=== PATIENT | male | born 1945 | race Caucasian/White ===

== ENCOUNTER 2016-12-31 14:55 | Emergency (ER) | payer MEDICARE, OTHER ==
[2016-12-31] MEDS ORDERED: Lidocaine 1% 20 ML MDV INJECT ONE (15:11)
[2016-12-31] MEDS ORDERED: Diphtheria,Pertussis(Acell),Tetanus Vaccine 0.5 ML SDV IM ONE (15:11)
[2016-12-31 15:12] VITALS: BP 153/77
[2016-12-31] MEDS ORDERED: Morphine 10 MG/ML Syringe IM ONE (15:26)
--- NOTE | 2016-12-31 16:19 | EDM.PDOC ---
ED HPI GENERAL MEDICAL PROBLEM - General Chief Complaint: Laceration Time Seen by Provider: 12/31/16 15:30 Source of Information: Reports: Patient History Limitations: Reports: No Limitations - History of Present Illness INITIAL COMMENTS - FREE TEXT/NARRATIVE: Stef is a 71 year old male who presents to the ED today with c/o toe and leg laceration after his son accidentally cut him with a chain saw. Patient was wearing a shoe, he was struck to right toe and lower right anterior padilla, then struck with chain saw when it kicked back. Patient denies any other injuries, he normally ambulates with a cane, has been able to bare weight since injury. Has not had anything for pain. Unsure of last DT. - Related Data Allergies Allergy/AdvReac Type Severity Reaction Status Date / Time No Known Allergies Allergy Verified 12/31/16 15:09 Home Meds: Home Meds Allopurinol [Zyloprim] 100 mg PO DAILY 01/11/16 [History] Calcium Carbonate [Calcium] 500 mg PO DAILY 01/11/16 [History] Magnesium 60 mg PO DAILY 01/11/16 [History] Naproxen 250 mg PO DAILY 01/11/16 [History] Past Medical History HEENT History: Reports: Hard of Hearing, Impaired Vision - Infectious Disease History Infectious Disease History: Reports: Chicken Pox - Past Surgical History HEENT Surgical History: Reports: Oral Surgery, Other (See Below) Other HEENT Surgeries/Procedures: tympanic bone surgery GI Surgical History: Reports: Appendectomy, Colonoscopy, Hernia, Abdominal, Hernia Repair/Other Social & Family History - Tobacco Use Smoking Status *Q: Never Smoker - Recreational Drug Use Recreational Drug Use: No ED ROS GENERAL - Review of Systems Review Of Systems: ROS reveals no pertinent complaints other than HPI. ED EXAM, SKIN/RASH Exam: See Below Exam Limited By: No Limitations General Appearance: Alert, WD/WN, Anxious Head: Atraumatic Neck: Normal Inspection, Supple, Non-Tender Respiratory/Chest: No Respiratory Distress Cardiovascular: Regular Rate, Rhythm Peripheral Pulses: 2+: Posterior Tibial (L), Posterior Tibial (R), Dorsalis Pedis (L), Dorsalis Pedis (R) GI/Abdominal: Normal Bowel Sounds, Soft, Non-Tender Extremities: Normal Range of Motion Neurological: Alert, Oriented, CN II-XII Intact Psychiatric: Normal Affect, Normal Mood, Anxious Skin: Warm, Dry, Other (3 cm deep tissue laceration to right anterior padilla, 2 cm superficial lac just proximal to this, 4 cm abrasion proximal to this. 1 cm laceration to dorsal aspect of right great toe with approx 1.5 cm area of missing tissue, no tendon invovlement on exam, either location, no foreign body either location. CMS intact, cap refill normal, pulses intact, sensation intact , very tender toanterior padilla with any palpation) Lymphatic: No Adenopathy ED SKIN PROCEDURES - Laceration/Wound Repair Right Lower Toes Appearance: Irregular, Clean Distal NVT: Neuro & Vascular Intact, No Tendon Injury Local Anesthesia - Lidocaine (Xylocaine): 1% Plain Local Anesthetic Volume: Other (10 ml) Skin Prep: Chlorhexidine (Hibiciens), Saline, Sterile Drape Exploration/Debridement/Repair: Wound Explored Closed with: Sutures Suture Size: other (5-0) # of Sutures: 10 (4 toe, 6 padilla) Suture Type: Prolene Course - Vital Signs Text/Narrative:: Stef is a 71 year old male who presents to the ED today after his son accidentally cut him with a chain saw. Please refer to HPI and focused exam. Lacerations/wounds were very well irrigated with NS. Hebiclens was also used, suture repair and dermabond used for closure, gouge of skin on right great toe oozing blood, covered with gel foam. Bacitracin and bandages applied and wound care discussed in detail with patient and his son. During suture repair, patient was exquisitely tender over right anterior padilla, x-rays obtained of right tib/fib and right foot and are negative for any acute findings on my review. I am going to start patient on Keflex for infection prophylaxis. I did tell patient I want him seen by his PCP by Monday for wound check, Dr. Carlisle, reasons to return to the ED were discussed in detail. Patient is asking for something for pain upon discharge, I will give a small supply of oxycodone for severe pain, narcotic safety discussed in detail, son assures me he will be around to keep an eye on patient. Patient and son agreeable to plan of care and patient was discharged from the ED in stable condition with his son driving. Last Recorded V/S: Last Vital Signs Temp 37.3 C 12/31/16 15:15 Pulse 87 12/31/16 15:15 Resp 20 12/31/16 15:15 BP 153/77 H 12/31/16 15:15 Pulse Ox 97 12/31/16 15:15 - Orders/Labs/Meds Orders: Active Orders 24 hr Category Date Time Status Vaccines to be Administered [RC] PER UNIT ROUTINE Care 12/31/16 15:11 Active Foot Comp Min 3V Rt [CR] Stat Exams 12/31/16 16:13 Ordered Tibia Fibula Rt [CR] Stat Exams 12/31/16 16:13 Ordered Meds: Medications Discontinued Medications Generic Name Dose Route Start Last Admin Trade Name Callie PRN Reason Stop Dose Admin Bacitracin 2 dose 12/31/16 16:30 Bacitracin Oint 1 Gm TOP 12/31/16 16:31 ONETIME ONE Diphtheria/Tetanus/Acell Pertussis 0.5 ml 12/31/16 15:11 12/31/16 15:18 Adacel IM 12/31/16 15:12 0.5 ml .ONCE ONE Administration Lidocaine HCl 20 ml 12/31/16 15:11 12/31/16 15:19 Xylocaine 1% INJECT 12/31/16 15:12 20 ml ONETIME ONE Administration Morphine Sulfate 8 mg 12/31/16 15:26 12/31/16 15:31 Morphine IM 12/31/16 15:27 8 mg ONETIME ONE Administration Departure - Departure Time of Disposition: 17:00 Disposition: Home, Self-Care 01 Condition: Good Clinical Impression: Contact with chainsaw as cause of accidental injury, Laceration Avulsion of skin of toe Qualifiers: Encounter type: initial encounter Qualified Code(s): S91.109A - Unspecified open wound of unspecified toe(s) without damage to nail, initial encounter - Discharge Information Instructions: Laceration Care, Adult, [id number], Stitches, [place], or Adhesive Wound Closure, [id number] Forms: ED Department Discharge Additional Instructions: Keep wound clean and dry. Bacitracin twice daily for 5 days. Keep covered for the first 24 hours, then only if it may get dirty. Take Tylenol for pain Take Oxycodone for severe pain, this is a narcotic, you cannot drive or drink alcohol if you take it. Be slow to stand and move around as it may make you dizzy/lightheaded. Take Keflex as prescribed to prevent infection. Follow up with Dr. Carlisle by Monday this next week. Ice and elevate throughout the day. Return to the Emergency Room with any complications or concerns. - My Orders Last 24 Hours: My Active Orders 12/31/16 15:11 Vaccines to be Administered [RC] PER UNIT ROUTINE 12/31/16 16:13 Foot Comp Min 3V Rt [CR] Stat Tibia Fibula Rt [CR] Stat - Assessment/Plan Last 24 Hours: My Active Orders 12/31/16 15:11 Vaccines to be Administered [RC] PER UNIT ROUTINE 12/31/16 16:13 Foot Comp Min 3V Rt [CR] Stat Tibia Fibula Rt [CR] Stat
[2016-12-31] MEDS ORDERED: Bacitracin Oint 1 GM U/D Packet TOP ONE (16:30)
--- NOTE | 2017-01-02 09:58 | CR ---
Tibia Fibula Rt INDICATION: trauma FINDINGS: No acute fracture. Degenerative changes in the knee and tibiotalar articulation.
--- NOTE | 2017-01-03 13:10 | CR ---
Foot Comp Min 3V Rt INDICATION: trauma FINDINGS: No evidence for acute fracture. Erosive changes involving the medial distal aspect of the first cuneiform. Soft tissue calcification about the midfoot and ankle. Consider an inflammatory art hropathy such as gout. Scattered hypertrophic changes. Exam otherwise negative.
== END 2016-12-31 17:07 | disposition home or self-care (01) ==
LOC: JP.ED 14:55
DX: S81.811A Laceration without foreign body, right lower leg, initial encounter (principal); S91.111A Laceration without foreign body of right great toe without damage to nail, initial encounter; Z23 Encounter for immunization; S91.101A Unspecified open wound of right great toe without damage to nail, initial encounter; S80.811A Abrasion, right lower leg, initial encounter; Z79.899 Other long term (current) drug therapy; H54.7 Unspecified visual loss; Z98.890 Other specified postprocedural states; Z90.49 Acquired absence of other specified parts of digestive tract; W29.3XXA Contact with powered garden and outdoor hand tools and machinery, initial encounter
CPT/HCPCS: 12002; 73590; 73630; 90715; 96372; 99283; J2270

== ENCOUNTER 2018-11-11 06:38 | Emergency (ER) | payer MEDICARE, OTHER ==
[2018-11-11 07:07] VITALS: BP 171/90
[2018-11-11] MEDS ORDERED: HYDROmorphone 0.5 MG/0.5 ML Syringe IVPUSH ONE (07:31)
[2018-11-11] MEDS ORDERED: Sodium Chloride 0.9% 10 ML Syringe FLUSH PRN (07:31)
--- NOTE | 2018-11-11 07:35 | EDM.PDOC ---
ED HPI GENERAL MEDICAL PROBLEM - General Chief Complaint: Abdominal Pain Stated Complaint: STOMACH PAINS Time Seen by Provider: 11/11/18 07:32 Source of Information: Reports: Patient History Limitations: Reports: No Limitations - History of Present Illness INITIAL COMMENTS - FREE TEXT/NARRATIVE: pt had sepsis in Jul and eneded up with nino kidney problems. He has been doing well until about 5 am and he developed mid abdomanal pain. He had a BM this am and he had one last nite. He did not vomit. He is doing alot of burping. He has not had this discomfort in the past. Onset: Today, Other ( started at 5 am. ) Duration: Hour(s): Associated Symptoms: Reports: No Other Symptoms Treatments MILLWRIGHT: Reports: Other (see below) Other Treatments MILLWRIGHT: none Abdominal Pain Score (Numeric/FACES): 10 - Related Data Allergies Allergy/AdvReac Type Severity Reaction Status Date / Time No Known Allergies Allergy Verified 12/31/16 15:09 Home Meds: Home Meds Allopurinol [Zyloprim] 300 mg PO DAILY 01/11/16 [History] Naproxen 650 mg PO Q6H PRN 01/11/16 [History] Acetaminophen [Tylenol] 11/11/18 [History] Apixaban [Eliquis] 5 mg PO BID 11/11/18 [History] Aspirin 325 mg PO DAILY 11/11/18 [History] Furosemide [Lasix] 20 mg PO DAILY 11/11/18 [History] Ipratropium/Albuterol Sulfate [Iprat-Albut 0.5-3(2.5) mg/3 ml] 3 ml INH Q6H [History] Lactulose 30 ml PO Q12H PRN 11/11/18 [History] Metoprolol Tartrate 37.5 mg PO TID 11/11/18 [History] Past Medical History HEENT History: Reports: Hard of Hearing, Impaired Vision Cardiovascular History: Reports: Afib, Other (See Below) Other Cardiovascular History: V fib Respiratory History: Reports: COPD Genitourinary History: Reports: Renal Disease Other Genitourinary History: stage 3 kidney disease - Infectious Disease History Infectious Disease History: Reports: Chicken Pox - Past Surgical History HEENT Surgical History: Reports: Oral Surgery, Other (See Below) Other HEENT Surgeries/Procedures: tympanic bone surgery GI Surgical History: Reports: Appendectomy, Colonoscopy, Hernia, Abdominal, Hernia Repair/Other Social & Family History - Tobacco Use Smoking Status *Q: Unknown Ever Smoked - Caffeine Use Caffeine Use: Reports: Coffee - Recreational Drug Use Recreational Drug Use: No ED ROS GENERAL - Review of Systems Review Of Systems: See Below Constitutional: Reports: No Symptoms HEENT: Reports: No Symptoms Respiratory: Reports: No Symptoms, Other (pt has a history of copd. ) Cardiovascular: Reports: No Symptoms Endocrine: Reports: No Symptoms GI/Abdominal: Reports: Abdominal Pain, Other (Pt had acute mid abdomanal pain starting at 5 am. He did not vomit. ) : Reports: No Symptoms Musculoskeletal: Reports: No Symptoms Skin: Reports: No Symptoms Neurological: Reports: No Symptoms ED EXAM, GI/ABD - Physical Exam Exam: See Below Text/Narrative:: pt arrived with mid abdomanal pain. This started suddenly at 5 am. He was still uncomfortable on arrival but gradually improved. He was given dilaudid .5 mg. He has been painfree at this time. Exam Limited By: No Limitations General Appearance: Alert, Anxious, Moderate Distress, Other ( Pt is comfortable at this time. He states when the pain was at its worst it was a 10. ) Ears: Normal TMs Nose: Normal Inspection Throat/Mouth: Normal Inspection Head: Atraumatic Neck: Normal Inspection Respiratory/Chest: No Respiratory Distress Cardiovascular: Regular Rate, Rhythm GI/Abdominal Exam: Other (pt had some mild tenderness in the rt upper abdoman. He was not guarded. ) (Male) Exam: Deferred Rectal (Males) Exam: Deferred Back Exam: Normal Inspection Extremities: Normal Inspection Neurological: Alert, Oriented, Normal Cognition Psychiatric: Normal Affect Course - Vital Signs Last Recorded V/S: Last Vital Signs Temp 36.0 C 11/11/18 07:13 Pulse 66 11/11/18 07:13 Resp 24 H 11/11/18 07:13 BP 171/90 H 11/11/18 07:13 Pulse Ox 100 11/11/18 07:13 - Orders/Labs/Meds Orders: Active Orders 24 hr Category Date Time Status Abdomen Pelvis w Cont [CT] Stat Exams 11/11/18 08:20 Stop Req Sodium Chloride 0.9% [Saline Flush] Med 11/11/18 07:31 Active 10 ml FLUSH ASDIRECTED PRN Saline Lock Insert [OM.PC] Routine Oth 11/11/18 07:31 Ordered Medication Orders Sodium Chloride (Saline Flush) 10 ml FLUSH ASDIRECTED PRN PRN Reason: Keep Vein Open Last Admin: 11/11/18 07:38 Dose: 10 ml Labs: Laboratory Tests 11/11/18 11/11/18 11/11/18 Range/Units 07:27 07:27 07:27 WBC 8.8 (4.5-11.0) K/uL RBC 5.32 (4.30-5.90) M/uL Hgb 15.9 H (12.0-15.0) g/dL Hct 47.4 (40.0-54.0) % MCV 89 (80-98) fL MCH 30 (27-31) pg MCHC 34 (32-36) % Plt Count 224 (150-400) K/uL Neut % (Auto) 54 (36-66) % Lymph % (Auto) 32 (24-44) % [place] % (Auto) 11 H (2-6) % Eos % (Auto) 2 (2-4) % Baso % (Auto) 1 (0-1) % Sodium 137 L (140-148) mmol/L Potassium 3.5 L (3.6-5.2) mmol/L Chloride 100 (100-108) mmol/L Carbon Dioxide 26 (21-32) mmol/L Anion Gap 14.5 H (5.0-14.0) mmol/L BUN 28 H (7-18) mg/dL Creatinine 1.4 H (0.8-1.3) mg/dL Est Cr Clr Drug Dosing 39.94 mL/min Estimated GFR (MDRD) 50 L (>60) Glucose 168 H (74-106) mg/dL Calcium 9.6 (8.5-10.1) mg/dL Total Bilirubin 0.9 (0.2-1.0) mg/dL AST 29 (15-37) U/L ALT 21 (12-78) U/L Alkaline Phosphatase 68 (46-116) U/L Total Protein 7.0 (6.4-8.2) g/dL Albumin 3.3 L (3.4-5.0) g/dL Globulin 3.7 H (2.3-3.5) g/dL Albumin/Globulin Ratio 0.9 L (1.2-2.2) Amylase 62 (25-115) U/L Lipase 443 H (73-393) U/L Urine Color Urine Appearance Urine pH (4.5-8.0) Ur Specific [place] (1.008-1.030) Urine Protein (NEGATIVE) mg/dL Urine Glucose (UA) (NEGATIVE) mg/dL Urine Ketones (NEGATIVE) mg/dL Urine Occult Blood (NEGATIVE) Urine Nitrite (NEGAITVE) Urine Bilirubin (NEGATIVE) Urine Urobilinogen (NORMAL) mg/dL Ur Leukocyte Esterase (NEGATIVE) Urine RBC (0-5) Urine WBC (0-5) Ur Epithelial Cells Amorphous Sediment Urine Bacteria Urine Mucus 11/11/18 Range/Units 08:56 WBC (4.5-11.0) K/uL RBC (4.30-5.90) M/uL Hgb (12.0-15.0) g/dL Hct (40.0-54.0) % MCV (80-98) fL MCH (27-31) pg MCHC (32-36) % Plt Count (150-400) K/uL Neut % (Auto) (36-66) % Lymph % (Auto) (24-44) % [place] % (Auto) (2-6) % Eos % (Auto) (2-4) % Baso % (Auto) (0-1) % Sodium (140-148) mmol/L Potassium (3.6-5.2) mmol/L Chloride (100-108) mmol/L Carbon Dioxide (21-32) mmol/L Anion Gap (5.0-14.0) mmol/L BUN (7-18) mg/dL Creatinine (0.8-1.3) mg/dL Est Cr Clr Drug Dosing mL/min Estimated GFR (MDRD) (>60) Glucose (74-106) mg/dL Calcium (8.5-10.1) mg/dL Total Bilirubin (0.2-1.0) mg/dL AST (15-37) U/L ALT (12-78) U/L Alkaline Phosphatase (46-116) U/L Total Protein (6.4-8.2) g/dL Albumin (3.4-5.0) g/dL Globulin (2.3-3.5) g/dL Albumin/Globulin Ratio (1.2-2.2) Amylase (25-115) U/L Lipase (73-393) U/L Urine Color Yellow Urine Appearance Clear Urine pH 8.0 (4.5-8.0) Ur Specific [place] 1.010 (1.008-1.030) Urine Protein Negative (NEGATIVE) mg/dL Urine Glucose (UA) Normal (NEGATIVE) mg/dL Urine Ketones Negative (NEGATIVE) mg/dL Urine Occult Blood Negative (NEGATIVE) Urine Nitrite Negative (NEGAITVE) Urine Bilirubin Negative (NEGATIVE) Urine Urobilinogen Normal (NORMAL) mg/dL Ur Leukocyte Esterase Negative (NEGATIVE) Urine RBC 0-5 (0-5) Urine WBC 0-5 (0-5) Ur Epithelial Cells Not seen Amorphous Sediment Few Urine Bacteria Not seen Urine Mucus Not seen Meds: Medications Generic Name Dose Route Start Last Admin Trade Name Freq PRN Reason Stop Dose Admin Sodium Chloride 10 ml 11/11/18 07:31 11/11/18 07:38 Saline Flush FLUSH 10 ml ASDIRECTED PRN Administration Keep Vein Open Discontinued Medications Generic Name Dose Route Start Last Admin Trade Name Freq PRN Reason Stop Dose Admin Hydromorphone HCl 0.5 mg 11/11/18 07:31 11/11/18 07:37 Dilaudid IVPUSH 11/11/18 07:32 0.5 mg ONETIME ONE Administration - Re-Assessments/Exams Free Text/Narrative Re-Assessment/Exam: 11/11/18 09:29 pt was found to have a normal wbc. His liver enzymes were normal. His amylase was just borderline. A cat scan of the abdoman was obtained which showed alot of stones in the GB. There small stone in the neck of the GB. There appears to be a acute cholecytis. Pt does not want to stay. He is now comfortable. He states this is his first attack. He is advised to eat a low fat diet. He is willing to see a surgeon next week. He will return if his pain should become severe. Departure - Departure Time of Disposition: 09:33 Disposition: Home, Self-Care 01 Condition: Fair Clinical Impression: Calculus of gallbladder with acute cholecystitis - Discharge Information Referrals: Steve Carlisle Sr, MD [Primary Care Provider] - Forms: ED Department Discharge Care Plan Goals: low fat diet, norco 5/325 if pain shouuld become severe, appt with surgeon this week, rtc for US of the GB, augmentin 875 1 tab bid for the next week, use yogurt or probiotic while on the antibiotic. - My Orders Last 24 Hours: My Active Orders 11/11/18 07:31 Sodium Chloride 0.9% [Saline Flush] 10 ml FLUSH ASDIRECTED PRN Saline Lock Insert [OM.PC] Routine 11/11/18 08:20 Abdomen Pelvis w Cont [CT] Stat - Assessment/Plan Last 24 Hours: My Active Orders 11/11/18 07:31 Sodium Chloride 0.9% [Saline Flush] 10 ml FLUSH ASDIRECTED PRN Saline Lock Insert [OM.PC] Routine 11/11/18 08:20 Abdomen Pelvis w Cont [CT] Stat
--- NOTE | 2018-11-11 08:18 | CRLCR ---
INDICATION: Abdominal pain. TECHNIQUE: Single-view chest and 2 views abdomen and pelvis. FINDINGS: Mild gas distention of small bowel and colonic loops in the abdomen and pelvis as well as mild gas distention of stomach falls within normal limits. No free intraperitoneal air. Rounded focus of increased soft tissue density in the left upper abdomen along the inferior aspect of the stomach level which measures 8-9 cm in diameter. This could be related to the stomach but is more rounded than typical and makes exclusion of a mass in this region not possible. If there is clinical concern this could be correlated to CT. The heart is enlarged. Mild opacity in the lungs likely related atelectasis scarring greatest in the left lung base. Mild scoliosis. Moderate degenerative changes in the spine. Chest and abdomen otherwise unremarkable. Dictated by Martin Thurston MD @ Nov 11 2018 8:16AM Signed by Dr. Martin Thurston @ Nov 11 2018 8:17AM
--- NOTE | 2018-11-11 08:58 | CRLCT ---
INDICATION: Mid abdominal pain. TECHNIQUE: CT of the abdomen and pelvis performed without oral IV contrast. FINDINGS: Osteopenia. Moderate degenerative changes in the spine. Dense mitral annular calcification. Mild interstitial prominence in the lung bases could be fibrotic or inflammatory. Few areas of nodularity in the lung bases specially in the lower lobes along the hemidiaphragms are nonspecific. These could be inflammatory or postinflammatory but could be compared with prior CT exams if any are available or followup CT could ensure these are stable. Small stones in the gallbladder. Mild inflammatory stranding about the gallbladder which suggests acute cholecystitis. Clinical and laboratory correlation suggested. Correlation with gallbladder ultrasound or HIDA scan could confirm this diagnosis. Tiny density in the region of the cystic duct could be a tiny stone. Small stone in the gallbladder neck near the cystic duct connection. No common bile duct dilatation. Mild fluid and stranding of mild degree about both kidneys likely chronic. Small left inguinal hernia containing only fat. Minimal fat-density change in irregularity of the bladder wall likely related to prior inflammation. Benign calcification in the fat adjacent to the mid sigmoid colon. Fat density change within the wall of the right colon could be related to prior inflammation or chronic inflammation. Similar change in the distal rectal wall. Appendix is normal. Remainder negative. IMPRESSION: 1. Cholelithiasis with stones extending to the gallbladder neck. Suggestion of a tiny calcification in the region of the cystic duct could be a tiny stone. Minimal inflammatory stranding about the gallbladder consistent with early acute cholecystitis. Suggest clinical correlation and laboratory correlation as well as gallbladder ultrasound or HIDA scan to confirm diagnosis. 2. Minimal bibasilar nodularity likely inflammatory or postinflammatory but could be followed with future imaging or compared with prior imaging to ensure it is stable. 3. Small fat containing left inguinal hernia. Other findings as above. Please note that all CT scans at this facility use dose modulation, iterative reconstruction, and/or weight-based dosing when appropriate to reduce radiation dose to as low as reasonably achievable. Dictated by Martin Thurston MD @ Nov 11 2018 8:53AM Signed by Dr. Martin Thurston @ Nov 11 2018 8:55AM
== END 2018-11-11 09:50 | disposition home or self-care (01) ==
LOC: JP.ED 06:38
DX: K80.00 Calculus of gallbladder with acute cholecystitis without obstruction (principal); I48.91 Unspecified atrial fibrillation; J44.9 Chronic obstructive pulmonary disease, unspecified; N18.3 Chronic kidney disease, stage 3 (moderate); Z79.899 Other long term (current) drug therapy; Z79.82 Long term (current) use of aspirin
CPT/HCPCS: 36415; 74022; 74176; 80053; 81001; 82150; 83690; 85025; 96374; 99284; J1170

== ENCOUNTER 2018-11-11 14:40 | Inpatient (IN) | payer MEDICARE, OTHER ==
[2018-11-11] MEDS ORDERED: Ondansetron 4 MG/2 ML SDV IVPUSH ONE (14:43)
[2018-11-11] MEDS ORDERED: HYDROmorphone 1 MG/ML Syringe IVPUSH ONE ×2 (14:44→15:12)
[2018-11-11] MEDS ORDERED: Sodium Chloride 0.9% 1,000 ML IV SCH (14:45)
--- NOTE | 2018-11-11 14:46 | EDM.PDOC ---
ED HPI GENERAL MEDICAL PROBLEM - General Chief Complaint: Abdominal Pain Stated Complaint: STOMACH PAIN Time Seen by Provider: 11/11/18 15:29 Source of Information: Reports: Patient History Limitations: Reports: No Limitations - History of Present Illness INITIAL COMMENTS - FREE TEXT/NARRATIVE: Pt returned with severe abdomanal pain. He was seen earlier and was felt to have a acute GB problem. I did try to have him see a surgeon this am but he felt like he wanted to wait. This was his first attack ever. Onset: Today, Sudden, Other ( The original pain started at 5 am. ) Duration: Hour(s): Location: Reports: Abdomen Associated Symptoms: Reports: No Other Symptoms Abdominal Pain Score (Numeric/FACES): 10 - Related Data Allergies Allergy/AdvReac Type Severity Reaction Status Date / Time No Known Allergies Allergy Verified 12/31/16 15:09 Home Meds: Home Meds Allopurinol [Zyloprim] 300 mg PO DAILY 01/11/16 [History] Naproxen 650 mg PO Q6H PRN 01/11/16 [History] Acetaminophen [Tylenol] 325 - 650 mg PO ASDIRECTED PRN 11/11/18 [History] Apixaban [Eliquis] 5 mg PO BID 11/11/18 [History] Aspirin 325 mg PO DAILY 11/11/18 [History] Furosemide [Lasix] 20 mg PO DAILY 11/11/18 [History] Ipratropium/Albuterol Sulfate [Iprat-Albut 0.5-3(2.5) mg/3 ml] 3 ml INH Q6H [History] Lactulose 30 ml PO Q12H PRN 11/11/18 [History] Metoprolol Tartrate 37.5 mg PO TID 11/11/18 [History] Past Medical History HEENT History: Reports: Hard of Hearing, Impaired Vision Cardiovascular History: Reports: Afib, Other (See Below) Other Cardiovascular History: V fib Respiratory History: Reports: COPD Genitourinary History: Reports: Renal Disease Other Genitourinary History: stage 3 kidney disease - Infectious Disease History Infectious Disease History: Reports: Chicken Pox - Past Surgical History HEENT Surgical History: Reports: Oral Surgery, Other (See Below) Other HEENT Surgeries/Procedures: tympanic bone surgery GI Surgical History: Reports: Appendectomy, Colonoscopy, Hernia, Abdominal, Hernia Repair/Other Social & Family History - Caffeine Use Caffeine Use: Reports: Coffee ED ROS GENERAL - Review of Systems Review Of Systems: See Below Constitutional: Reports: No Symptoms HEENT: Reports: No Symptoms Respiratory: Reports: No Symptoms Cardiovascular: Reports: No Symptoms Endocrine: Reports: No Symptoms GI/Abdominal: Reports: Abdominal Pain, Other ( severe mid abdomanl pain returned and he is extremely uncomfortable. ) : Reports: No Symptoms Musculoskeletal: Reports: No Symptoms Skin: Reports: No Symptoms ED EXAM, GI/ABD - Physical Exam Exam: See Below Text/Narrative:: pt arrived very uncomfortable and nauseated. He had been seen earlier and noted to have a probable acute cholecystis. Exam Limited By: No Limitations General Appearance: Alert, Severe Distress, Other (pt is very sweaty. ) Ears: Normal TMs Nose: Normal Inspection Throat/Mouth: Normal Inspection Head: Atraumatic Neck: Normal Inspection Respiratory/Chest: No Respiratory Distress Cardiovascular: Regular Rate, Rhythm GI/Abdominal Exam: Other (pt was having very severe pain on arrival. It 2 mg of dilaudid to relieve his pain ) (Male) Exam: Deferred Rectal (Males) Exam: Deferred Back Exam: Normal Inspection Extremities: Normal Inspection Neurological: Alert, Oriented, Normal Cognition Psychiatric: Normal Affect Course - Vital Signs Last Recorded V/S: Last Vital Signs Temp 37.2 C 11/11/18 15:45 Pulse 85 11/11/18 16:01 Resp 22 H 11/11/18 16:01 BP 162/81 H 11/11/18 16:01 Pulse Ox 99 11/11/18 15:45 - Orders/Labs/Meds Orders: Active Orders 24 hr Category Date Time Status EKG Documentation Completion [RC] ASDIRECTED Care 11/11/18 14:57 Active Abdomen Ltd [US] Stat Exams 11/11/18 14:44 Ordered Sodium Chloride 0.9% [Normal Saline] 1,000 ml Med 11/11/18 14:45 Active IV ASDIRECTED EKG 12 Lead [EK] Routine Ther 11/11/18 14:57 Ordered Medication Orders Sodium Chloride (Normal Saline) 1,000 mls @ 999 mls/hr IV ASDIRECTED LO Last Admin: 11/11/18 14:56 Dose: 999 mls/hr Labs: Laboratory Tests 11/11/18 11/11/18 Range/Units 14:59 14:59 Troponin I < 0.017 (0.000-0.056) ng/mL Lipase 298 (73-393) U/L Meds: Medications Generic Name Dose Route Start Last Admin Trade Name Freyovany PRN Reason Stop Dose Admin Sodium Chloride 1,000 mls @ 999 mls/hr 11/11/18 14:45 11/11/18 14:56 Normal Saline IV 999 mls/hr ASDIRECTED LO Administration Discontinued Medications Generic Name Dose Route Start Last Admin Trade Name Callie PRN Reason Stop Dose Admin Hydromorphone HCl 1 mg 11/11/18 14:44 11/11/18 14:56 Dilaudid IVPUSH 11/11/18 14:45 1 mg ONETIME ONE Administration Hydromorphone HCl 1 mg 11/11/18 15:12 11/11/18 15:16 Dilaudid IVPUSH 11/11/18 15:13 1 mg ONETIME ONE Administration Hydromorphone HCl Confirm 11/11/18 15:13 11/11/18 15:16 Dilaudid Administered 11/11/18 15:14 Not Given Dose 1 mg .ROUTE .STK-MED ONE Lorazepam 0.5 mg 11/11/18 15:13 11/11/18 15:19 Ativan IVPUSH 11/11/18 15:14 0.5 mg ONETIME ONE Administration Ondansetron HCl 4 mg 11/11/18 14:43 11/11/18 14:56 Zofran IVPUSH 11/11/18 14:44 4 mg ONETIME ONE Administration Departure - Departure Time of Disposition: 16:12 Disposition: Admitted As Inpatient 67 Condition: Fair Clinical Impression: Acute cholecystitis, Atrial fibrillation, Calculus of gallbladder with acute cholecystitis - Discharge Information Referrals: PCP,None [Primary Care Provider] - Forms: ED Department Discharge Care Plan Goals: admit to Dr Power. - My Orders Last 24 Hours: My Active Orders 11/11/18 14:44 Abdomen Ltd [US] Stat 11/11/18 14:45 Sodium Chloride 0.9% [Normal Saline] 1,000 ml IV ASDIRECTED 11/11/18 14:57 EKG Documentation Completion [RC] ASDIRECTED EKG 12 Lead [EK] Routine - Assessment/Plan Last 24 Hours: My Active Orders 11/11/18 14:44 Abdomen Ltd [US] Stat 11/11/18 14:45 Sodium Chloride 0.9% [Normal Saline] 1,000 ml IV ASDIRECTED 11/11/18 14:57 EKG Documentation Completion [RC] ASDIRECTED EKG 12 Lead [EK] Routine
[2018-11-11] MEDS ORDERED: LORazepam 2 MG/ML SDV IVPUSH ONE (15:13)
[2018-11-11] MEDS ORDERED: HYDROmorphone 1 MG/ML Syringe ONE (15:13)
--- NOTE | 2018-11-11 16:31 | CRLUS ---
HISTORY: possible acute cholecystitis. Right upper quadrant pain. COMPARISON: CT 11/11/2018. FINDINGS: The visualized liver demonstrates normal echogenicity. The right lobe is not seen well due to shadowing artifact. There is gallbladder wall thickening and edema measuring 4 mm in thickness. Multiple gallbladder stones. There is a shadowing stone within the neck of the gallbladder. No evidence for intra or extrahepatic biliary dilation. The common duct is measured at 0.5 cm. No visible choledocholithiasis. Positive sonographic Pratt`s sign. The visualized pancreas is within normal. The right kidney measures 10 cm in length. There is a small amount of right perinephric fluid, correlated on recent CT. IMPRESSION: Findings are consistent with acute cholecystitis. No evidence for choledocholithiasis. Recommend surgical consultation. Dictated by Carolynn Rojas MD @ Nov 11 2018 4:30PM Signed by Dr. Carolynn Rojas @ Nov 11 2018 4:30PM
--- NOTE | 2018-11-11 16:48 | PCM.HP ---
H&P History of Present Illness - General Date of Service: 11/11/18 Admit Problem/Dx: Admission Diagnosis/Problem Admission Diagnosis/Problem Cholecystitis Source of Information: Patient, Family, Provider, RN Notes Reviewed History Limitations: Reports: No Limitations - History of Present Illness Initial Comments - Free Text/Narative: Mr. Claros is a 73-year-old gentleman who was admitted through the emergency department with upper abdominal pain and nausea, secondary to acute cholecystitis. He noted abrupt onset of pain this morning and presented to the emergency department, evaluation was remarkable for acute cholecystitis with mild elevation in the lipase level. White blood cell count was found to be normal and pain improved while he was in the emergency department. CT scan of the abdomen and pelvis was obtained which suggested acute cholecystitis with some stranding around the gallbladder and significant cholelithiasis. He is on anticoagulation with Eliquis because of atrial fibrillation. He was discharged to home and instructed to stop taking the anticoagulation, and then to follow- up in the clinic. After he arrived home developed severe recurrent pain and presented back to the emergency department. Lipase level was repeated and had normalized and sleepy earlier level. Ultrasound was obtained which confirms cholecystitis and significant cholelithiasis, there was question of possible small stone at the neck of the gallbladder. No evidence of ductal dilatation or stones within the ductal system. He is feeling better since arriving back at the emergency department, unfortunately he did take his Eliquis this afternoon after he arrived home. He denies any recent symptoms of chest pain or pressure, he does experience shortness of breath but it is been stable over the past several months. He did undergo cardiac evaluation in July while he was in [place]. It was at that time that his atrial fibrillation was diagnosed and he was started on anticoagulation. He does have the records from his cardiac evaluation from [place] and his son will bring them in for review tomorrow. He has had previous surgery with general anesthesia and denies significant adverse reaction, no family history of adverse reaction to general anesthetic. He denies any previous history of deep vein thrombosis, pulmonary embolism, or bleeding abnormalities. Abdominal Pain Score (Numeric/FACES): 10 - Related Data Allergies/Adverse Reactions: Allergies Allergy/AdvReac Type Severity Reaction Status Date / Time No Known Allergies Allergy Verified 12/31/16 15:09 Home Medications: Home Meds Allopurinol [Zyloprim] 300 mg PO DAILY 01/11/16 [History] Naproxen 650 mg PO Q6H PRN 01/11/16 [History] Acetaminophen [Tylenol] 325 - 650 mg PO ASDIRECTED PRN 11/11/18 [History] Apixaban [Eliquis] 5 mg PO BID 11/11/18 [History] Aspirin 325 mg PO DAILY 11/11/18 [History] Furosemide [Lasix] 20 mg PO DAILY 11/11/18 [History] Ipratropium/Albuterol Sulfate [Iprat-Albut 0.5-3(2.5) mg/3 ml] 3 ml INH Q6H [History] Lactulose 30 ml PO Q12H PRN 11/11/18 [History] Metoprolol Tartrate 37.5 mg PO TID 11/11/18 [History] Past Medical History HEENT History: Reports: Hard of Hearing, Impaired Vision Cardiovascular History: Reports: Afib, Other (See Below) Other Cardiovascular History: V fib Respiratory History: Reports: COPD Genitourinary History: Reports: Renal Disease Other Genitourinary History: stage 3 kidney disease - Infectious Disease History Infectious Disease History: Reports: Chicken Pox - Past Surgical History HEENT Surgical History: Reports: Oral Surgery, Other (See Below) Other HEENT Surgeries/Procedures: tympanic bone surgery GI Surgical History: Reports: Appendectomy, Colonoscopy, Hernia, Abdominal, Hernia Repair/Other Social & Family History - Tobacco Use Smoking Status *Q: Unknown Ever Smoked - Caffeine Use Caffeine Use: Reports: Coffee - Recreational Drug Use Recreational Drug Use: No H&P Review of Systems - Review of Systems: Review Of Systems: See Below General: Reports: Weakness, Diaphoresis, Decreased Appetite. Denies: Fever, Chills HEENT: Reports: No Symptoms Pulmonary: Reports: No Symptoms Cardiovascular: Reports: No Symptoms Gastrointestinal: Reports: Abdominal Pain, Distension, Nausea. Denies: Black Stool, Bloody Stool, Constipation, Diarrhea, Difficulty Swallowing, Vomiting Genitourinary: Reports: No Symptoms Musculoskeletal: Reports: No Symptoms Skin: Reports: No Symptoms Psychiatric: Reports: No Symptoms Neurological: Reports: No Symptoms Hematologic/Lymphatic: Reports: No Symptoms Immunologic: Reports: No Symptoms Exam - Exam Exam: See Below - Vital Signs Vital Signs: Last Vital Signs Temp 99 F 11/11/18 15:45 Pulse 85 11/11/18 16:01 Resp 22 H 11/11/18 16:01 BP 162/81 H 11/11/18 16:01 Pulse Ox 99 11/11/18 15:45 Weight: 202 lb 6.15 oz - Exam Quality Assessment: DVT Prophylaxis General: Alert, Oriented, Cooperative, Mild Distress HEENT: Conjunctiva Clear, Hearing Intact, Normal Nasal Septum, Posterior Pharynx Clear, Pupils Equal. No: Mucosa Moist & Bunn Neck: Supple, Trachea Midline, +2 Carotid Pulse wo Bruit Lungs: Clear to Auscultation, Normal Respiratory Effort Cardiovascular: Regular Rate, Normal S1, Normal S2, Irregular Rhythm. No: Systolic Murmur, Diastolic Murmur GI/Abdominal Exam: Soft, No Organomegaly, Distended, Tender. No: Guarding, Rigid, Rebound Back Exam: Normal Inspection, Full Range of Motion Extremities: Non-Tender, No Pedal Edema Skin: Warm, Dry, Intact Neurological: Cranial Nerves Intact, Strength Equal Bilateral, Normal Speech, Normal Tone, Sensation Intact. No: Focal Deficit Neuro Extensive - Mental Status: Alert, Oriented x3, Normal Mood/Affect, Normal Cognition, Memory Intact - Patient Data Lab Results Last 24 hrs: Laboratory Results - last 24 hr 11/11/18 11/11/18 Range/Units 14:59 14:59 Troponin I < 0.017 (0.000-0.056) ng/mL Lipase 298 (73-393) U/L *Q Meaningful Use (ADM) - VTE Risk Assess *Q Each Risk Factor Represents 1 Point: Obesity ( BMI > 25 kg/m2) Total Score 1 Point Risk Factors: 1 Each Risk Factor Represents 2 Points: Age 60 - 74 Years Total Score 2 Point Risk Factors: 2 Each Risk Factor Represents 3 Points: None Total Score 3 Point Risk Factors: 0 Each Risk Factor Represents 5 Points: None Total Score 5 Point Risk Factors: 0 Venous Thromboembolism Risk Factor Score *Q: 3 Problem List Initiated/Reviewed/Updated: Yes Orders Last 24hrs: Active Orders 24 hr Category Date Time Status Patient Status Manage Transfer [TRANSFER] Routine ADT 11/11/18 16:40 Ordered EKG Documentation Completion [RC] ASDIRECTED Care 11/11/18 14:57 Active Sodium Chloride 0.9% [Normal Saline] 1,000 ml Med 11/11/18 14:45 Active IV ASDIRECTED Resuscitation Status Routine Resus Stat 11/11/18 16:43 Ordered EKG 12 Lead [EK] Routine Ther 11/11/18 14:57 Ordered Medication Orders Sodium Chloride (Normal Saline) 1,000 mls @ 999 mls/hr IV ASDIRECTED [facility] Last Admin: 11/11/18 14:56 Dose: 999 mls/hr Assessment/Plan Comment:: ASSESSMENT AND PLAN ACUTE CHOLECYSTITIS-documented on CT scan as well as ultrasound obtained today. Transient elevation in lipase level, found to be normal on his second visit to the ED this afternoon. -Nothing by mouth -IV fluids for hydration -Medication for pain and nausea as needed -Consult Dr. Blas for surgical opinion -IV Unasyn and Azactam ATRIAL FIBRILLATION-diagnosed in July when he was started on anticoagulation. He denies any other history of cardiac disease. He did have cardiac evaluation in July when the atrial fibrillation was diagnosed. He has records from [place] including this evaluation and they will be brought in for review tomorrow. Rate has been well controlled thus far. -Continue outpatient medications -Hold Maggi CHRONIC KIDNEY DISEASE STAGE IIIa -Closely monitor kidney function and urine output LONG-STANDING HISTORY OF ALCOHOL ABUSE ON A DAILY BASIS-he reports history of heavier alcohol use in the past, currently admits to 4 ounces of alcohol per day -Monitor closely for alcohol withdrawal -Gabapentin 400 mg by mouth every 8 hours 4 days, then 200 mg by mouth every 8 hours for 4 days MAINTENANCE ISSUES -DVT prophylaxis; SCUDS -GI prophylaxis; Protonix 40 mg IV daily -White catheter; not indicated -Nutrition; nothing by mouth -Nicotine dependence; not required CODE STATUS-FULL CODE ADMISSION STATUS-patient will be admitted to inpatient status, expect at least a 2 night hospital stay for evaluation and management of problems as outlined above. At the time of this admission I do not reasonably expected evaluation and management of this problem will require more than a 96 hour hospital stay. DISPOSITION-anticipate discharge to home after the hospital stay. PRIMARY CARE PROVIDER-
[2018-11-11] MEDS ORDERED: LORazepam 2 MG/ML SDV IVPUSH PRN (17:24)
[2018-11-11] MEDS ORDERED: Acetaminophen 325 MG Tab PO PRN (18:59)
[2018-11-11] MEDS ORDERED: Albuterol 0.083% 2.5 MG/3 ML Neb Soln NEB PRN (18:59)
[2018-11-11] MEDS ORDERED: Lactulose Soln 10 GM/15 ML 15 ML UD Cup PO PRN (18:59)
[2018-11-11] MEDS ORDERED: Potassium Chloride 20 MEQ Tab.ER PO ONE ×2 (18:59→22:00)
[2018-11-11] MEDS ORDERED: Sodium Chloride 0.9% 10 ML Syringe FLUSH PRN (18:59)
[2018-11-11] MEDS ORDERED: Ondansetron 4 MG/2 ML SDV IVPUSH PRN (18:59)
[2018-11-11] MEDS ORDERED: Pantoprazole 40 MG Vial IVPUSH SCH (19:00)
[2018-11-11] MEDS: Lactated Ringers 1,000 ML IV SCH (19:36)
[2018-11-11] MEDS: Ampicillin/Sulbactam Na 1.5 GM in Sodium Chloride 0.9% 50 ML IV SCH (19:42)
[2018-11-11] MEDS: Gabapentin 400 MG Cap PO SCH (19:43)
[2018-11-11] MEDS: Albuterol/Ipratropium 3.0-0.5 MG/3 ML Neb Soln NEB SCH (21:03)
[2018-11-11] MEDS: Aztreonam 1 GM in Sodium Chloride 0.9% 100 ML IV SCH (21:04)
[2018-11-11] MEDS: HYDROmorphone 0.5 MG/0.5 ML Syringe IVPUSH PRN (21:04)
[2018-11-11] MEDS: Metoprolol Tartrate 25 MG Tab PO SCH (21:35)
[2018-11-12] MEDS: Ampicillin/Sulbactam Na 1.5 GM in Sodium Chloride 0.9% 50 ML IV SCH ×4 (02:07→20:11)
[2018-11-12] MEDS: Gabapentin 400 MG Cap PO SCH ×3 (02:08→18:30)
[2018-11-12] MEDS: Lactated Ringers 1,000 ML IV SCH ×2 (05:58→17:08)
[2018-11-12] MEDS: Aztreonam 1 GM in Sodium Chloride 0.9% 100 ML IV SCH (05:58)
[2018-11-12] MEDS: Albuterol/Ipratropium 3.0-0.5 MG/3 ML Neb Soln NEB SCH ×5 (06:00→21:52)
[2018-11-12] MEDS ORDERED: Pneumococcal Polyvalent-23 Vaccine 0.5 ML SDV IM ONE (08:00)
--- NOTE | 2018-11-12 08:59 | PN ---
DATE OF SERVICE: 11/12/2018 SUBJECTIVE: Stef was admitted through the emergency room yesterday with acute cholecystitis. He has cholelithiasis. Reports his pain is controlled. He has been n.p.o. States this is the first gallbladder problems that he has had. Vital signs have been stable. He has been n.p.o. REVIEW OF SYSTEMS: Remainder of review of systems negative for any pertinent positives and negatives. OBJECTIVE: GENERAL: Kris Claros is a 73-year-old male. VITAL SIGNS: TPR 98, 70, 18, blood pressure 103/58. HEENT: Negative. NECK: Supple. HEART: Regular rate and rhythm. LUNGS: Clear. ABDOMEN: There is tenderness noted in the right upper quadrant, otherwise negative. EXTREMITIES: Without peripheral edema. ASSESSMENT: Acute cholecystitis. PLAN: 1. Schedule and have consent signed for laparoscopic possible open cholecystectomy, general anesthesia on Monday11/13/2018, Glen Blas MD, n.p.o. after midnight. 2. Clear liquid diet. We will evaluate p.r.n. or in a.m. Gabriela Herron PA-C /[phone]
[2018-11-12] MEDS: Aspirin 325 MG Tab.EC PO SCH (10:19)
[2018-11-12] MEDS: Metoprolol Tartrate 25 MG Tab PO SCH ×3 (10:19→21:49)
[2018-11-12] MEDS: Allopurinol 300 MG Tab PO SCH (13:58)
--- NOTE | 2018-11-12 14:44 | PCM.PN ---
- General Info Date of Service: 11/12/18 Subjective Update: No acute events overnight. He has not had any abdominal pain since the time of admission. No complaints of nausea. No fevers. Surgical intervention planned tomorrow. Functional Status: Reports: Pain Controlled, Tolerating Diet - Review of Systems General: Denies: Fever - Patient Data Vitals - Most Recent: Last Vital Signs Temp 35.9 C 11/12/18 11:07 Pulse 59 L 11/12/18 14:35 Resp 16 11/12/18 11:07 BP 109/60 11/12/18 11:07 Pulse Ox 97 11/12/18 14:35 Weight - Most Recent: 90.718 kg I&O - Last 24 Hours: Intake & Output 11/11/18 11/12/18 11/12/18 22:59 06:59 14:59 Intake Total 1300 1500 Balance 1300 1500 Lab Results Last 24 Hours: Laboratory Results - last 24 hr 11/11/18 11/11/18 11/12/18 Range/Units 14:59 14:59 05:48 WBC 8.1 (4.5-11.0) K/uL RBC 4.96 (4.30-5.90) M/uL Hgb 14.8 (12.0-15.0) g/dL Hct 45.6 (40.0-54.0) % MCV 92 (80-98) fL MCH 30 (27-31) pg MCHC 33 (32-36) % Plt Count 185 (150-400) K/uL Neut % (Auto) 63 (36-66) % Lymph % (Auto) 25 (24-44) % Quay % (Auto) 9 H (2-6) % Eos % (Auto) 2 (2-4) % Baso % (Auto) 0 (0-1) % Sodium (140-148) mmol/L Potassium (3.6-5.2) mmol/L Chloride (100-108) mmol/L Carbon Dioxide (21-32) mmol/L Anion Gap (5.0-14.0) mmol/L BUN (7-18) mg/dL Creatinine (0.8-1.3) mg/dL Est Cr Clr Drug Dosing mL/min Estimated GFR (MDRD) (>60) Glucose (74-106) mg/dL Calcium (8.5-10.1) mg/dL Troponin I < 0.017 (0.000-0.056) ng/mL Lipase 298 (73-393) U/L 11/12/18 Range/Units 05:48 WBC (4.5-11.0) K/uL RBC (4.30-5.90) M/uL Hgb (12.0-15.0) g/dL Hct (40.0-54.0) % MCV (80-98) fL MCH (27-31) pg MCHC (32-36) % Plt Count (150-400) K/uL Neut % (Auto) (36-66) % Lymph % (Auto) (24-44) % Quay % (Auto) (2-6) % Eos % (Auto) (2-4) % Baso % (Auto) (0-1) % Sodium 139 L (140-148) mmol/L Potassium 4.8 (3.6-5.2) mmol/L Chloride 106 (100-108) mmol/L Carbon Dioxide 26 (21-32) mmol/L Anion Gap 11.8 (5.0-14.0) mmol/L BUN 21 H (7-18) mg/dL Creatinine 1.3 (0.8-1.3) mg/dL Est Cr Clr Drug Dosing 43.30 mL/min Estimated GFR (MDRD) 54 L (>60) Glucose 126 H (74-106) mg/dL Calcium 8.7 (8.5-10.1) mg/dL Troponin I (0.000-0.056) ng/mL Lipase (73-393) U/L Med Orders - Current: Current Medications Acetaminophen (Tylenol) 650 mg PO Q4H PRN PRN Reason: Pain (Mild 1-3)/fever Albuterol (Proventil Neb Soln) 2.5 mg NEB Q4H PRN PRN Reason: Shortness Of Breath/wheezing Albuterol/Ipratropium (Duoneb 3.0-0.5 Mg/3 Ml) 3 ml NEB QIDRT [facility] Last Admin: 11/12/18 14:35 Dose: 3 ml Allopurinol (Zyloprim) 300 mg PO DAILY [facility] Last Admin: 11/12/18 13:58 Dose: 300 mg Aspirin (Ecotrin) 325 mg PO DAILY [facility] Last Admin: 11/12/18 10:19 Dose: Not Given Gabapentin (Neurontin) 400 mg PO Q8H [facility] Last Admin: 11/12/18 11:13 Dose: 400 mg Hydromorphone HCl (Dilaudid) 0.5 mg IVPUSH Q2H PRN PRN Reason: Pain Last Admin: 11/11/18 21:04 Dose: 0.5 mg Lactated Ringer's (Ringers, Lactated) 1,000 mls @ 125 mls/hr IV ASDIRECTED [facility] Last Admin: 11/12/18 05:58 Dose: 125 mls/hr Ampicillin Sodium/Sulbactam (Sodium 1.5 gm/ Sodium Chloride) 50 mls @ 100 mls/ hr IV Q6H [facility] Last Admin: 11/12/18 13:58 Dose: 100 mls/hr Aztreonam 1 gm/ Sodium (Chloride) 50 mls @ 100 mls/hr IV Q8HR [facility] Lactulose (Chronulac) 20 gm PO Q12H PRN PRN Reason: Constipation Lorazepam (Ativan) 0.5 mg IVPUSH Q4H PRN PRN Reason: Nausea Metoprolol Tartrate (Lopressor) 37.5 mg PO TID [facility] Last Admin: 11/12/18 10:19 Dose: Not Given Ondansetron HCl (Zofran) 4 mg IVPUSH Q4H PRN PRN Reason: Nausea/Vomiting Pantoprazole Sodium (Protonix Iv) 40 mg IVPUSH Q24H [facility] Sodium Chloride (Saline Flush) 10 ml FLUSH ASDIRECTED PRN PRN Reason: Keep Vein Open Discontinued Medications Albuterol/Ipratropium (Duoneb 3.0-0.5 Mg/3 Ml) 3 ml NEB QID [facility] Last Admin: 11/12/18 06:00 Dose: Not Given Hydromorphone HCl (Dilaudid) 1 mg IVPUSH ONETIME ONE Stop: 11/11/18 14:45 Last Admin: 11/11/18 14:56 Dose: 1 mg Hydromorphone HCl (Dilaudid) 1 mg IVPUSH ONETIME ONE Stop: 11/11/18 15:13 Last Admin: 11/11/18 15:16 Dose: 1 mg Hydromorphone HCl (Dilaudid) Confirm Administered Dose 1 mg .ROUTE .STK-MED ONE Stop: 11/11/18 15:14 Last Admin: 11/11/18 15:16 Dose: Not Given Sodium Chloride (Normal Saline) 1,000 mls @ 999 mls/hr IV ASDIRECTED [facility] Last Admin: 11/11/18 14:56 Dose: 999 mls/hr Ampicillin Sodium/Sulbactam (Sodium 1.5 gm/ Sodium Chloride) 50 mls @ 100 mls/ hr IV Q6H [facility] Last Admin: 11/12/18 06:44 Dose: 100 mls/hr Aztreonam 1 gm/ Sodium (Chloride) 100 mls @ 200 mls/hr IV Q8HR [facility] Last Admin: 11/12/18 05:58 Dose: 200 mls/hr Lorazepam (Ativan) 0.5 mg IVPUSH ONETIME ONE Stop: 11/11/18 15:14 Last Admin: 11/11/18 15:19 Dose: 0.5 mg Ondansetron HCl (Zofran) 4 mg IVPUSH ONETIME ONE Stop: 11/11/18 14:44 Last Admin: 11/11/18 14:56 Dose: 4 mg Pantoprazole Sodium (Protonix Iv) 40 mg IVPUSH Q24H [facility] Last Admin: 11/11/18 19:40 Dose: 40 mg Pneumococcal Polyvalent Vaccine (Pneumovax 23) 0.5 ml IM .ONCE ONE Stop: 11/12/18 08:01 Potassium Chloride (Klor-Con M20) 40 meq PO ONETIME ONE Stop: 11/11/18 19:00 Last Admin: 11/11/18 19:42 Dose: 40 meq Potassium Chloride (Klor-Con M20) 40 meq PO ONETIME ONE Stop: 11/11/18 22:01 Last Admin: 11/11/18 21:34 Dose: 40 meq - Exam Quality Assessment: No: Supplemental Oxygen General: Alert, Oriented, Cooperative, No Acute Distress Lungs: Normal Respiratory Effort GI/Abdominal Exam: Soft, No Distention Extremities: No Pedal Edema Psy/Mental Status: Alert, Normal Affect - Problem List Review Problem List Initiated/Reviewed/Updated: Yes - My Orders Last 24 Hours: My Active Orders 11/12/18 13:30 Allopurinol [Zyloprim] 300 mg PO DAILY 05/21/19 05:00 BASIC METABOLIC PANEL,BMP [CHEM] Timed - Plan Plan:: ASSESSMENT AND PLAN ACUTE CHOLECYSTITIS - documented on CT scan as well as ultrasound obtained in the emergency room. No recurrence of pain since admission. -Nothing by mouth after midnight -IV fluids for hydration -Medication for pain and nausea as needed -Surgical intervention planned tomorrow -IV amp/sulbactam and aztreonam ATRIAL FIBRILLATION - diagnosed in July when he was started on anticoagulation. Rate controlled. Last dose of anticoagulation was yesterday. -Continue outpatient medications -Hold apixaban CHRONIC KIDNEY DISEASE STAGE IIIa - stable. -Closely monitor kidney function and urine output LONG-STANDING HISTORY OF ALCOHOL DEPENDENCE - he reports history of heavier alcohol use in the past, currently admits to 4 ounces of alcohol per day. No evidence for withdrawal -Monitor closely for alcohol withdrawal -Gabapentin 400 mg by mouth every 8 hours 4 days, then 200 mg by mouth every 8 hours for 4 days MAINTENANCE ISSUES -DVT prophylaxis; SCUDS -GI prophylaxis; PPI -White catheter; not indicated -Nutrition; clear liquids today, NPO after midnight DISPOSITION - anticipate discharge to home after the hospital stay. Chavo Jose M.D.
[2018-11-12] MEDS: Pantoprazole 40 MG Vial IVPUSH SCH (18:30)
[2018-11-13] MEDS: Ampicillin/Sulbactam Na 1.5 GM in Sodium Chloride 0.9% 50 ML IV SCH ×4 (01:40→19:30)
[2018-11-13] MEDS: Lactated Ringers 1,000 ML IV SCH ×3 (01:40→14:16)
[2018-11-13] MEDS: Gabapentin 400 MG Cap PO SCH ×3 (04:06→19:30)
[2018-11-13] MEDS: Metoprolol Tartrate 25 MG Tab PO SCH ×4 (06:38→21:45)
[2018-11-13] MEDS ORDERED: Bupivacaine 0.5%/EPINEPHrine 1:200,000 50 ML MDV ONE (06:52)
[2018-11-13] MEDS: Albuterol/Ipratropium 3.0-0.5 MG/3 ML Neb Soln NEB SCH ×4 (07:18→21:45)
[2018-11-13] MEDS ORDERED: fentaNYL 250 MCG/5 ML SDV ONE (07:41)
[2018-11-13] MEDS ORDERED: Dexamethasone 4 MG/ML SDV ONE (07:42)
[2018-11-13] MEDS ORDERED: Glycopyrrolate 0.2 MG/ML 5 ML MDV ONE (07:42)
[2018-11-13] MEDS ORDERED: Rocuronium 50 MG/5 ML Vial ONE (07:42)
[2018-11-13] MEDS ORDERED: Ondansetron 4 MG/2 ML SDV ONE (07:42)
[2018-11-13] MEDS ORDERED: Succinylcholine 200 MG/10 ML MDV ONE (07:42)
[2018-11-13] MEDS ORDERED: Propofol 200 MG/20 ML SDV ONE (07:42)
[2018-11-13] MEDS ORDERED: Neostigmine Methylsulfate 1 MG/ML 5 ML Syringe ONE (07:42)
[2018-11-13] MEDS ORDERED: Ketamine 500 MG/5 ML MDV IV SCH (10:45)
[2018-11-13] MEDS ORDERED: Meropenem 500 MG SDV ONE (12:32)
[2018-11-13] MEDS ORDERED: Furosemide 20 MG/2 ML VIAL IVPUSH ONE (13:19)
[2018-11-13] MEDS ORDERED: Albuterol/Ipratropium 3.0-0.5 MG/3 ML Neb Soln NEB ONE (13:20)
[2018-11-13] MEDS: Allopurinol 300 MG Tab PO SCH (14:02)
[2018-11-13] MEDS: HYDROmorphone 0.5 MG/0.5 ML Syringe IVPUSH PRN ×2 (14:10→16:50)
[2018-11-13] MEDS ORDERED: Albuterol/Ipratropium 3.0-0.5 MG/3 ML Neb Soln INH PRN (14:13)
[2018-11-13] MEDS: Pantoprazole 40 MG Vial IVPUSH SCH (17:53)
[2018-11-14] MEDS: Lactated Ringers 1,000 ML IV SCH ×3 (00:59→20:11)
[2018-11-14] MEDS: Ampicillin/Sulbactam Na 1.5 GM in Sodium Chloride 0.9% 50 ML IV SCH ×4 (02:50→20:05)
[2018-11-14] MEDS: Gabapentin 400 MG Cap PO SCH ×3 (02:53→20:08)
--- NOTE | 2018-11-14 06:46 | PCM.SURGPN ---
<G[place] Blas - Last Filed: 11/15/18 12:26> - Patient Data Vitals - Most Recent: Last Vital Signs Temp 95.4 F 11/15/18 02:33 Pulse 63 11/15/18 02:33 Resp 16 11/15/18 02:33 BP 126/78 11/15/18 02:33 Pulse Ox 96 11/15/18 02:33 I&O - Last 24 Hours: Intake & Output 11/14/18 11/14/18 11/15/18 14:59 22:59 06:59 Intake Total 1060 2235 1802 Output Total 1100 1670 1730 Balance -40 565 72 Tono Results Last 24 Hrs: Microbiology 11/13/18 12:36 Gram Stain - Final Gallbladder Fluid - Bile Wound Culture - Preliminary NO GROWTH AFTER 2 DAYS Anaerobic Culture - Preliminary NO GROWTH AFTER 2 DAYS Med Orders - Current: Current Medications Acetaminophen (Tylenol) 650 mg PO Q4H PRN PRN Reason: Pain (Mild 1-3)/fever Last Admin: 11/13/18 15:06 Dose: 650 mg Albuterol (Proventil Neb Soln) 2.5 mg NEB Q4H PRN PRN Reason: Shortness Of Breath/wheezing Albuterol/Ipratropium (Duoneb 3.0-0.5 Mg/3 Ml) 3 ml NEB QIDRT PENDING SALE TO [facility] Last Admin: 11/14/18 20:07 Dose: 3 ml Albuterol/Ipratropium (Duoneb 3.0-0.5 Mg/3 Ml) 3 ml INH ASDIRECTED PRN PRN Reason: BREATHING Allopurinol (Zyloprim) 300 mg PO DAILY PENDING SALE TO [facility] Last Admin: 11/14/18 08:42 Dose: 300 mg Aspirin (Ecotrin) 325 mg PO DAILY PENDING SALE TO [facility] Last Admin: 11/14/18 08:43 Dose: Not Given Gabapentin (Neurontin) 400 mg PO Q8H PENDING SALE TO [facility] Last Admin: 11/15/18 02:17 Dose: 400 mg Hydromorphone HCl (Dilaudid) 2 - 4 mg PO Q4H PRN PRN Reason: Pain Ampicillin Sodium/Sulbactam (Sodium 1.5 gm/ Sodium Chloride) 50 mls @ 100 mls/ hr IV Q6H PENDING SALE TO [facility] Last Admin: 11/15/18 02:17 Dose: 100 mls/hr Aztreonam 1 gm/ Sodium (Chloride) 50 mls @ 100 mls/hr IV Q8HR PENDING SALE TO [facility] Last Admin: 11/15/18 05:07 Dose: 100 mls/hr Lactated Ringer's (Ringers, Lactated) 1,000 mls @ 100 mls/hr IV ASDIRECTED PENDING SALE TO [facility] Last Admin: 11/14/18 20:11 Dose: 100 mls/hr Lactulose (Chronulac) 20 gm PO Q12H PRN PRN Reason: Constipation Lorazepam (Ativan) 0.5 mg IVPUSH Q4H PRN PRN Reason: Nausea Metoprolol Tartrate (Lopressor) 37.5 mg PO TID PENDING SALE TO [facility] Last Admin: 11/14/18 20:09 Dose: 37.5 mg Ondansetron HCl (Zofran) 4 mg IVPUSH Q4H PRN PRN Reason: Nausea/Vomiting Ondansetron HCl (Zofran Odt) 4 mg PO Q4H PRN PRN Reason: Nausea/Vomiting Pantoprazole Sodium (Protonix) 40 mg PO Q24H PENDING SALE TO [facility] Last Admin: 11/14/18 16:38 Dose: 40 mg Pneumococcal Polyvalent Vaccine (Pneumovax 23) 0.5 ml IM .ONCE ONE Stop: 11/15/18 14:01 Sodium Chloride (Saline Flush) 10 ml FLUSH ASDIRECTED PRN PRN Reason: Keep Vein Open Discontinued Medications Albuterol/Ipratropium (Duoneb 3.0-0.5 Mg/3 Ml) 3 ml NEB QID PENDING SALE TO [facility] Last Admin: 11/12/18 06:00 Dose: Not Given Albuterol/Ipratropium (Duoneb 3.0-0.5 Mg/3 Ml) 3 ml NEB ONETIME ONE Stop: 11/13/18 13:21 Last Admin: 11/13/18 14:02 Dose: Not Given Bupivacaine HCl/Epinephrine Bitart (Marcaine 0.5%/Epinephrine 1:200,000) Confirm Administered Dose 50 ml .ROUTE .STK-MED ONE Stop: 11/13/18 06:53 Ropivacaine 45 ml/Dexamethasone 8 mg/Epinephrine HCl 0.4 mg/ Sodium Chloride 32.6 ml 0 ml NERVRT ASDIRECTED PENDING SALE TO [facility] Last Admin: 11/13/18 12:04 Dose: 80 syringe Dexamethasone (Dexamethasone) Confirm Administered Dose 4 mg .ROUTE .STK-MED ONE Stop: 11/13/18 07:43 Fentanyl (Sublimaze) Confirm Administered Dose 250 mcg .ROUTE .STK-MED ONE Stop: 11/13/18 07:42 Furosemide (Lasix) 20 mg IVPUSH ONETIME ONE Stop: 11/13/18 13:20 Last Admin: 11/13/18 13:24 Dose: 20 mg Furosemide (Lasix) 20 mg IVPUSH ONETIME ONE Stop: 11/15/18 06:28 Last Admin: 11/15/18 06:44 Dose: 20 mg Glycopyrrolate (Robinul) Confirm Administered Dose 1 mg .ROUTE .STK-MED ONE Stop: 11/13/18 07:43 Hydromorphone HCl (Dilaudid) 1 mg IVPUSH ONETIME ONE Stop: 11/11/18 14:45 Last Admin: 11/11/18 14:56 Dose: 1 mg Hydromorphone HCl (Dilaudid) 1 mg IVPUSH ONETIME ONE Stop: 11/11/18 15:13 Last Admin: 11/11/18 15:16 Dose: 1 mg Hydromorphone HCl (Dilaudid) Confirm Administered Dose 1 mg .ROUTE .STK-MED ONE Stop: 11/11/18 15:14 Last Admin: 11/11/18 15:16 Dose: Not Given Hydromorphone HCl (Dilaudid) 0.5 mg IVPUSH Q2H PRN PRN Reason: Pain Last Admin: 11/13/18 16:50 Dose: 0.5 mg Sodium Chloride (Normal Saline) 1,000 mls @ 999 mls/hr IV ASDIRECTED PENDING SALE TO [facility] Last Admin: 11/11/18 14:56 Dose: 999 mls/hr Ampicillin Sodium/Sulbactam (Sodium 1.5 gm/ Sodium Chloride) 50 mls @ 100 mls/ hr IV Q6H PENDING SALE TO [facility] Last Admin: 11/12/18 06:44 Dose: 100 mls/hr Aztreonam 1 gm/ Sodium (Chloride) 100 mls @ 200 mls/hr IV Q8HR PENDING SALE TO [facility] Last Admin: 11/12/18 05:58 Dose: 200 mls/hr Lactated Ringer's (Ringers, Lactated) 1,000 mls @ 125 mls/hr IV ASDIRECTED PENDING SALE TO [facility] Last Admin: 11/14/18 00:59 Dose: 125 mls/hr Lorazepam (Ativan) 0.5 mg IVPUSH ONETIME ONE Stop: 11/11/18 15:14 Last Admin: 11/11/18 15:19 Dose: 0.5 mg Meropenem (Merrem) Confirm Administered Dose 500 mg .ROUTE .STK-MED ONE Stop: 11/13/18 12:33 Last Admin: 11/13/18 12:35 Dose: 500 mg Neostigmine Methylsulfate (Neostigmine) Confirm Administered Dose 5 mg .ROUTE .STK-MED ONE Stop: 11/13/18 07:43 Ondansetron HCl (Zofran) 4 mg IVPUSH ONETIME ONE Stop: 11/11/18 14:44 Last Admin: 11/11/18 14:56 Dose: 4 mg Ondansetron HCl (Zofran) Confirm Administered Dose 4 mg .ROUTE .STK-MED ONE Stop: 11/13/18 07:43 Pantoprazole Sodium (Protonix Iv) 40 mg IVPUSH Q24H PENDING SALE TO [facility] Last Admin: 11/11/18 19:40 Dose: 40 mg Pantoprazole Sodium (Protonix Iv) 40 mg IVPUSH Q24H PENDING SALE TO [facility] Last Admin: 11/13/18 17:53 Dose: 40 mg Pneumococcal Polyvalent Vaccine (Pneumovax 23) 0.5 ml IM .ONCE ONE Stop: 11/12/18 08:01 Last Admin: 11/14/18 09:59 Dose: Not Given Potassium Chloride (Klor-Con M20) 40 meq PO ONETIME ONE Stop: 11/11/18 19:00 Last Admin: 11/11/18 19:42 Dose: 40 meq Potassium Chloride (Klor-Con M20) 40 meq PO ONETIME ONE Stop: 11/11/18 22:01 Last Admin: 11/11/18 21:34 Dose: 40 meq Propofol (Diprivan 20 Ml) Confirm Administered Dose 200 mg .ROUTE .STK-MED ONE Stop: 11/13/18 07:43 Rocuronium [place] (Zemuron) Confirm Administered Dose 50 mg .ROUTE .STK-MED ONE Stop: 11/13/18 07:43 Succinylcholine Chloride (Quelicin) Confirm Administered Dose 200 mg .ROUTE .STK -MED ONE Stop: 11/13/18 07:43 - Problem List & Annotations (1) Acute cholecystitis SNOMED Code(s): 26767381 Code(s): K81.0 - ACUTE CHOLECYSTITIS Status: Acute - My Orders Last 24 Hours: Active Orders 24 hr Category Date Time Status Communication Order [RC] ASDIRECTED Care 11/14/18 09:12 Active May Shower [RC] ASDIRECTED Care 11/14/18 08:16 Active Regular Diet [DIET] Diet 11/14/18 Lunch Active HYDROmorphone [Dilaudid] Med 11/14/18 08:16 Active 2 - 4 mg PO Q4H PRN Lactated Ringers [Ringers, Lactated] 1,000 ml Med 11/14/18 08:30 Active IV ASDIRECTED Ondansetron [Zofran ODT] Med 11/14/18 08:18 Active 4 mg PO Q4H PRN Pantoprazole [ProTONIX] Med 11/14/18 16:30 Active 40 mg PO Q24H Pneumococcal Polyvalent-23 Vac [Pneumovax 23] Med 11/15/18 14:00 Once 0.5 ml IM .ONCE ONE Medication Orders Acetaminophen (Tylenol) 650 mg PO Q4H PRN PRN Reason: Pain (Mild 1-3)/fever Last Admin: 11/13/18 15:06 Dose: 650 mg Albuterol (Proventil Neb Soln) 2.5 mg NEB Q4H PRN PRN Reason: Shortness Of Breath/wheezing Albuterol/Ipratropium (Duoneb 3.0-0.5 Mg/3 Ml) 3 ml NEB QIDRT PENDING SALE TO [facility] Last Admin: 11/14/18 20:07 Dose: 3 ml Admin: 11/14/18 15:09 Dose: 3 ml Admin: 11/14/18 10:35 Dose: 3 ml Admin: 11/14/18 07:09 Dose: 3 ml Admin: 11/13/18 21:45 Dose: 3 ml Admin: 11/13/18 14:49 Dose: 3 ml Admin: 11/13/18 10:37 Dose: 3 ml Admin: 11/13/18 07:18 Dose: 3 ml Admin: 11/12/18 21:52 Dose: 3 ml Admin: 11/12/18 14:35 Dose: 3 ml Admin: 11/12/18 10:34 Dose: 3 ml Admin: 11/12/18 10:20 Dose: Albuterol/Ipratropium (Duoneb 3.0-0.5 Mg/3 Ml) 3 ml INH ASDIRECTED PRN PRN Reason: BREATHING Allopurinol (Zyloprim) 300 mg PO DAILY PENDING SALE TO [facility] Last Admin: 11/14/18 08:42 Dose: 300 mg Admin: 11/13/18 14:02 Dose: 300 mg Admin: 11/12/18 13:58 Dose: 300 mg Aspirin (Ecotrin) 325 mg PO DAILY PENDING SALE TO [facility] Last Admin: 11/14/18 08:43 Dose: Admin: 11/12/18 10:19 Dose: Not Given Gabapentin (Neurontin) 400 mg PO Q8H PENDING SALE TO [facility] Last Admin: 11/15/18 02:17 Dose: 400 mg Admin: 11/14/18 20:08 Dose: 400 mg Admin: 11/14/18 10:55 Dose: 400 mg Admin: 11/14/18 02:53 Dose: 400 mg Admin: 11/13/18 19:30 Dose: 400 mg Admin: 11/13/18 10:40 Dose: Admin: 11/13/18 04:06 Dose: Admin: 11/12/18 18:30 Dose: 400 mg Admin: 11/12/18 11:13 Dose: 400 mg Admin: 11/12/18 02:08 Dose: 400 mg Admin: 11/11/18 19:43 Dose: 400 mg Hydromorphone HCl (Dilaudid) 2 - 4 mg PO Q4H PRN PRN Reason: Pain Ampicillin Sodium/Sulbactam (Sodium 1.5 gm/ Sodium Chloride) 50 mls @ 100 mls/ hr IV Q6H PENDING SALE TO [facility] Last Admin: 11/15/18 02:17 Dose: 100 mls/hr Admin: 11/14/18 20:05 Dose: 100 mls/hr Admin: 11/14/18 13:14 Dose: 100 mls/hr Admin: 11/14/18 08:37 Dose: 100 mls/hr Admin: 11/14/18 02:50 Dose: 100 mls/hr Admin: 11/13/18 19:30 Dose: 100 mls/hr Admin: 11/13/18 14:45 Dose: 100 mls/hr Admin: 11/13/18 08:13 Dose: 100 mls/hr Admin: 11/13/18 01:40 Dose: 100 mls/hr Admin: 11/12/18 20:11 Dose: 100 mls/hr Admin: 11/12/18 13:58 Dose: 100 mls/hr Aztreonam 1 gm/ Sodium (Chloride) 50 mls @ 100 mls/hr IV Q8HR PENDING SALE TO [facility] Last Admin: 11/15/18 05:07 Dose: 100 mls/hr Infusion: 11/14/18 22:34 Dose: 100 mls/hr Admin: 11/14/18 22:04 Dose: 100 mls/hr Infusion: 11/14/18 14:17 Dose: 100 mls/hr Admin: 11/14/18 13:47 Dose: 100 mls/hr Infusion: 11/14/18 06:05 Dose: 100 mls/hr Admin: 11/14/18 05:35 Dose: 100 mls/hr Infusion: 11/13/18 22:16 Dose: 100 mls/hr Admin: 11/13/18 21:46 Dose: 100 mls/hr Infusion: 11/13/18 15:33 Dose: 100 mls/hr Admin: 11/13/18 15:03 Dose: 100 mls/hr Infusion: 11/13/18 06:28 Dose: 100 mls/hr Admin: 11/13/18 05:58 Dose: 100 mls/hr Infusion: 11/12/18 22:24 Dose: 100 mls/hr Admin: 11/12/18 21:54 Dose: 100 mls/hr Infusion: 11/12/18 15:32 Dose: 100 mls/hr Admin: 11/12/18 15:02 Dose: 100 mls/hr Lactated Ringer's (Ringers, Lactated) 1,000 mls @ 100 mls/hr IV ASDIRECTED PENDING SALE TO [facility] Last Admin: 11/14/18 20:11 Dose: 100 mls/hr Infusion: 11/14/18 20:11 Dose: 100 mls/hr Admin: 11/14/18 10:55 Dose: 100 mls/hr Lactulose (Chronulac) 20 gm PO Q12H PRN PRN Reason: Constipation Lorazepam (Ativan) 0.5 mg IVPUSH Q4H PRN PRN Reason: Nausea Metoprolol Tartrate (Lopressor) 37.5 mg PO TID PENDING SALE TO [facility] Last Admin: 11/14/18 20:09 Dose: 37.5 mg Admin: 11/14/18 14:25 Dose: 37.5 mg Admin: 11/14/18 08:42 Dose: 37.5 mg Admin: 11/13/18 21:45 Dose: 37.5 mg Admin: 11/13/18 14:03 Dose: 37.5 mg Admin: 11/13/18 07:00 Dose: 37.5 mg Admin: 11/13/18 06:38 Dose: 37.5 mg Admin: 11/12/18 21:49 Dose: 37.5 mg Admin: 11/12/18 15:02 Dose: 37.5 mg Admin: 11/12/18 10:19 Dose: Not Given Admin: 11/11/18 21:35 Dose: 37.5 mg Ondansetron HCl (Zofran) 4 mg IVPUSH Q4H PRN PRN Reason: Nausea/Vomiting Ondansetron HCl (Zofran Odt) 4 mg PO Q4H PRN PRN Reason: Nausea/Vomiting Pantoprazole Sodium (Protonix) 40 mg PO Q24H PENDING SALE TO [facility] Last Admin: 11/14/18 16:38 Dose: 40 mg Pneumococcal Polyvalent Vaccine (Pneumovax 23) 0.5 ml IM .ONCE ONE Stop: 11/15/18 14:01 Sodium Chloride (Saline Flush) 10 ml FLUSH ASDIRECTED PRN PRN Reason: Keep Vein Open <Francisco Coronado M - Last Filed: 11/15/18 12:39> - General Info Date of Service: 11/14/18 Date of Surgery/Procedure: 11/13/18 POD#: 1 Post-Op Diagnosis: Cholecystitis Admission Diagnosis/Problem: Cholecystitis Functional Status: Reports: Pain Controlled, Urinating - Review of Systems General: Reports: Appetite. Denies: Fever, Weakness, Chills, Night Sweats HEENT: Denies: Headaches Pulmonary: Reports: Sputum. Denies: Shortness of Breath, Pleuritic Chest Pain Cardiovascular: Denies: Chest Pain, Orthopnea, Edema, Lightheadedness Gastrointestinal: Reports: Abdominal Pain (Mild RUQ abdominal pain). Denies: Constipation, Decreased Appetite, Diarrhea, Melena, Nausea, Vomiting Genitourinary: Denies: Dysuria, Burning, Pain, Incontinence - Patient Data Vitals - Most Recent: Last Vital Signs Temp 35.6 C 11/14/18 02:54 Pulse 76 11/14/18 02:54 Resp 18 11/14/18 02:54 BP 118/79 11/14/18 02:54 Pulse Ox 98 11/14/18 02:54 Weight - Most Recent: 90.718 kg I&O - Last 24 Hours: Intake & Output 11/13/18 11/13/18 11/14/18 14:59 22:59 06:59 Intake Total 150 1892 2597 Output Total 900 485 Balance 353 658 7166 Lab Results Last 24 Hrs: Laboratory Results - last 24 hr 11/14/18 11/14/18 Range/Units 04:00 04:00 WBC 6.7 (4.5-11.0) K/uL RBC 4.27 L (4.30-5.90) M/uL Hgb 12.7 D (12.0-15.0) g/dL Hct 39.0 L (40.0-54.0) % MCV 91 (80-98) fL MCH 30 (27-31) pg MCHC 33 (32-36) % Plt Count 142 L (150-400) K/uL Sodium 131 L (140-148) mmol/L Potassium 4.6 (3.6-5.2) mmol/L Chloride 99 L (100-108) mmol/L Carbon Dioxide 23 (21-32) mmol/L Anion Gap 13.6 (5.0-14.0) mmol/L BUN 19 H (7-18) mg/dL Creatinine 1.3 (0.8-1.3) mg/dL Est Cr Clr Drug Dosing 43.30 mL/min Estimated GFR (MDRD) 54 L (>60) Glucose 214 H (74-106) mg/dL Calcium 8.4 L (8.5-10.1) mg/dL Phosphorus 2.6 (2.5-4.9) mg/dL Magnesium 1.8 (1.8-2.4) mg/dL Total Bilirubin 0.7 (0.2-1.0) mg/dL AST 44 H (15-37) U/L ALT 27 (12-78) U/L Alkaline Phosphatase 55 (46-116) U/L NT-Pro-B Natriuret Pep 4282 H (5-125) pg/mL Total Protein 5.5 L (6.4-8.2) g/dL Albumin 2.5 L (3.4-5.0) g/dL Globulin 3.0 (2.3-3.5) g/dL Albumin/Globulin Ratio 0.8 L (1.2-2.2) Tono Results Last 24 Hrs: Microbiology 11/13/18 12:36 Gram Stain - Final Gallbladder Fluid - Bile Med Orders - Current: Current Medications Acetaminophen (Tylenol) 650 mg PO Q4H PRN PRN Reason: Pain (Mild 1-3)/fever Last Admin: 11/13/18 15:06 Dose: 650 mg Albuterol (Proventil Neb Soln) 2.5 mg NEB Q4H PRN PRN Reason: Shortness Of Breath/wheezing Albuterol/Ipratropium (Duoneb 3.0-0.5 Mg/3 Ml) 3 ml NEB QIDRT PENDING SALE TO [facility] Last Admin: 11/13/18 21:45 Dose: 3 ml Albuterol/Ipratropium (Duoneb 3.0-0.5 Mg/3 Ml) 3 ml INH ASDIRECTED PRN PRN Reason: BREATHING Allopurinol (Zyloprim) 300 mg PO DAILY PENDING SALE TO [facility] Last Admin: 11/13/18 14:02 Dose: 300 mg Aspirin (Ecotrin) 325 mg PO DAILY PENDING SALE TO [facility] Last Admin: 11/12/18 10:19 Dose: Not Given Ropivacaine 45 ml/Dexamethasone 8 mg/Epinephrine HCl 0.4 mg/ Sodium Chloride 32.6 ml 0 ml NERVRT ASDIRECTED PENDING SALE TO [facility] Last Admin: 11/13/18 12:04 Dose: 80 syringe Gabapentin (Neurontin) 400 mg PO Q8H LO Last Admin: 11/14/18 02:53 Dose: 400 mg Hydromorphone HCl (Dilaudid) 0.5 mg IVPUSH Q2H PRN PRN Reason: Pain Last Admin: 11/13/18 16:50 Dose: 0.5 mg Lactated Ringer's (Ringers, Lactated) 1,000 mls @ 125 mls/hr IV ASDIRECTED PENDING SALE TO [facility] Last Admin: 11/14/18 00:59 Dose: 125 mls/hr Ampicillin Sodium/Sulbactam (Sodium 1.5 gm/ Sodium Chloride) 50 mls @ 100 mls/ hr IV Q6H PENDING SALE TO [facility] Last Admin: 11/14/18 02:50 Dose: 100 mls/hr Aztreonam 1 gm/ Sodium (Chloride) 50 mls @ 100 mls/hr IV Q8HR PENDING SALE TO [facility] Last Admin: 11/14/18 05:35 Dose: 100 mls/hr Lactulose (Chronulac) 20 gm PO Q12H PRN PRN Reason: Constipation Lorazepam (Ativan) 0.5 mg IVPUSH Q4H PRN PRN Reason: Nausea Metoprolol Tartrate (Lopressor) 37.5 mg PO TID PENDING SALE TO [facility] Last Admin: 11/13/18 21:45 Dose: 37.5 mg Ondansetron HCl (Zofran) 4 mg IVPUSH Q4H PRN PRN Reason: Nausea/Vomiting Pantoprazole Sodium (Protonix Iv) 40 mg IVPUSH Q24H PENDING SALE TO [facility] Last Admin: 11/13/18 17:53 Dose: 40 mg Sodium Chloride (Saline Flush) 10 ml FLUSH ASDIRECTED PRN PRN Reason: Keep Vein Open Discontinued Medications Albuterol/Ipratropium (Duoneb 3.0-0.5 Mg/3 Ml) 3 ml NEB QID PENDING SALE TO [facility] Last Admin: 11/12/18 06:00 Dose: Not Given Albuterol/Ipratropium (Duoneb 3.0-0.5 Mg/3 Ml) 3 ml NEB ONETIME ONE Stop: 11/13/18 13:21 Last Admin: 11/13/18 14:02 Dose: Not Given Bupivacaine HCl/Epinephrine Bitart (Marcaine 0.5%/Epinephrine 1:200,000) Confirm Administered Dose 50 ml .ROUTE .STK-MED ONE Stop: 11/13/18 06:53 Dexamethasone (Dexamethasone) Confirm Administered Dose 4 mg .ROUTE .STK-MED ONE Stop: 11/13/18 07:43 Fentanyl (Sublimaze) Confirm Administered Dose 250 mcg .ROUTE .STK-MED ONE Stop: 11/13/18 07:42 Furosemide (Lasix) 20 mg IVPUSH ONETIME ONE Stop: 11/13/18 13:20 Last Admin: 11/13/18 13:24 Dose: 20 mg Glycopyrrolate (Robinul) Confirm Administered Dose 1 mg .ROUTE .STK-MED ONE Stop: 11/13/18 07:43 Hydromorphone HCl (Dilaudid) 1 mg IVPUSH ONETIME ONE Stop: 11/11/18 14:45 Last Admin: 11/11/18 14:56 Dose: 1 mg Hydromorphone HCl (Dilaudid) 1 mg IVPUSH ONETIME ONE Stop: 11/11/18 15:13 Last Admin: 11/11/18 15:16 Dose: 1 mg Hydromorphone HCl (Dilaudid) Confirm Administered Dose 1 mg .ROUTE .STK-MED ONE Stop: 11/11/18 15:14 Last Admin: 11/11/18 15:16 Dose: Not Given Sodium Chloride (Normal Saline) 1,000 mls @ 999 mls/hr IV ASDIRECTED LO Last Admin: 11/11/18 14:56 Dose: 999 mls/hr Ampicillin Sodium/Sulbactam (Sodium 1.5 gm/ Sodium Chloride) 50 mls @ 100 mls/ hr IV Q6H LO Last Admin: 11/12/18 06:44 Dose: 100 mls/hr Aztreonam 1 gm/ Sodium (Chloride) 100 mls @ 200 mls/hr IV Q8HR LO Last Admin: 11/12/18 05:58 Dose: 200 mls/hr Lorazepam (Ativan) 0.5 mg IVPUSH ONETIME ONE Stop: 11/11/18 15:14 Last Admin: 11/11/18 15:19 Dose: 0.5 mg Meropenem (Merrem) Confirm Administered Dose 500 mg .ROUTE .STK-MED ONE Stop: 11/13/18 12:33 Last Admin: 11/13/18 12:35 Dose: 500 mg Neostigmine Methylsulfate (Neostigmine) Confirm Administered Dose 5 mg .ROUTE .STK-MED ONE Stop: 11/13/18 07:43 Ondansetron HCl (Zofran) 4 mg IVPUSH ONETIME ONE Stop: 11/11/18 14:44 Last Admin: 11/11/18 14:56 Dose: 4 mg Ondansetron HCl (Zofran) Confirm Administered Dose 4 mg .ROUTE .STK-MED ONE Stop: 11/13/18 07:43 Pantoprazole Sodium (Protonix Iv) 40 mg IVPUSH Q24H LO Last Admin: 11/11/18 19:40 Dose: 40 mg Pneumococcal Polyvalent Vaccine (Pneumovax 23) 0.5 ml IM .ONCE ONE Stop: 11/12/18 08:01 Potassium Chloride (Klor-Con M20) 40 meq PO ONETIME ONE Stop: 11/11/18 19:00 Last Admin: 11/11/18 19:42 Dose: 40 meq Potassium Chloride (Klor-Con M20) 40 meq PO ONETIME ONE Stop: 11/11/18 22:01 Last Admin: 11/11/18 21:34 Dose: 40 meq Propofol (Diprivan 20 Ml) Confirm Administered Dose 200 mg .ROUTE .STK-MED ONE Stop: 11/13/18 07:43 Rocuronium [place] (Zemuron) Confirm Administered Dose 50 mg .ROUTE .STK-MED ONE Stop: 11/13/18 07:43 Succinylcholine Chloride (Quelicin) Confirm Administered Dose 200 mg .ROUTE .STK -MED ONE Stop: 11/13/18 07:43 - Exam Wound/Incisions: Healing Well, Dressing Dry and Intact, Drainage (Some drainage present in the KARSON drain. ) Quality Assessment: DVT Prophylaxis General: Alert, Oriented, Cooperative, No Acute Distress Lungs: Normal Respiratory Effort, Wheezing (Diffuse expiratory wheeze present.) Cardiovascular: Regular Rate, Regular Rhythm, No Murmurs GI/Abdominal Exam: Soft, Tender (Tender over the laproscopic insertion sites.) Skin: Warm, Dry, Intact Neurological: No New Focal Deficit, Normal Speech Psy/Mental Status: Alert, Normal Affect, Normal Mood - Problem List Review Problem List Initiated/Reviewed/Updated: Yes - My Orders Last 24 Hours: Active Orders 24 hr Category Date Time Status RT Incentive Spirometry [RC] ASDIRECTED Care 11/13/18 14:04 Active Surgical Drains [Drain Management] [RC] ASDIRECTED Care 11/13/18 14:05 Active Turn, Cough, Deep Breathe [RC] .PRN Care 11/13/18 14:04 Active Vital Signs [RC] Q4H Care 11/13/18 14:02 Active Advance Diet Instructions [DIET] Diet 11/13/18 Dinner Active CULTURE ANAEROBIC [RM] Routine Lab 11/13/18 12:36 Results CULTURE WOUND + SMEAR [RM] Stat Lab 11/13/18 12:36 Results Albuterol/Ipratropium [DuoNeb 3.0-0.5 MG/3 ML] Med 11/13/18 14:13 Active 3 ml INH ASDIRECTED PRN Ropivacaine [Naropin 0.5%] 45 ml Med 11/13/18 10:45 Active dexAMETHasone [Dexamethasone] 8 mg EPINEPHrine [Adrenalin] 0.4 mg Sodium Chloride 0.9% [Normal Saline] 32.6 ml NERVRT ASDIRECTED Medication Orders Acetaminophen (Tylenol) 650 mg PO Q4H PRN PRN Reason: Pain (Mild 1-3)/fever Last Admin: 11/13/18 15:06 Dose: 650 mg Albuterol (Proventil Neb Soln) 2.5 mg NEB Q4H PRN PRN Reason: Shortness Of Breath/wheezing Albuterol/Ipratropium (Duoneb 3.0-0.5 Mg/3 Ml) 3 ml NEB QIDRT PENDING SALE TO [facility] Last Admin: 11/13/18 21:45 Dose: 3 ml Admin: 11/13/18 14:49 Dose: 3 ml Admin: 11/13/18 10:37 Dose: 3 ml Admin: 11/13/18 07:18 Dose: 3 ml Admin: 11/12/18 21:52 Dose: 3 ml Admin: 11/12/18 14:35 Dose: 3 ml Admin: 11/12/18 10:34 Dose: 3 ml Admin: 11/12/18 10:20 Dose: Albuterol/Ipratropium (Duoneb 3.0-0.5 Mg/3 Ml) 3 ml INH ASDIRECTED PRN PRN Reason: BREATHING Allopurinol (Zyloprim) 300 mg PO DAILY PENDING SALE TO [facility] Last Admin: 11/13/18 14:02 Dose: 300 mg Admin: 11/12/18 13:58 Dose: 300 mg Aspirin (Ecotrin) 325 mg PO DAILY PENDING SALE TO [facility] Last Admin: 11/12/18 10:19 Dose: Not Given Ropivacaine 45 ml/Dexamethasone 8 mg/Epinephrine HCl 0.4 mg/ Sodium Chloride 32.6 ml 0 ml NERVRT ASDIRECTED PENDING SALE TO [facility] Last Admin: 11/13/18 12:04 Dose: 80 syringe Gabapentin (Neurontin) 400 mg PO Q8H PENDING SALE TO [facility] Last Admin: 11/14/18 02:53 Dose: 400 mg Admin: 11/13/18 19:30 Dose: 400 mg Admin: 11/13/18 10:40 Dose: Admin: 11/13/18 04:06 Dose: Admin: 11/12/18 18:30 Dose: 400 mg Admin: 11/12/18 11:13 Dose: 400 mg Admin: 11/12/18 02:08 Dose: 400 mg Admin: 11/11/18 19:43 Dose: 400 mg Hydromorphone HCl (Dilaudid) 0.5 mg IVPUSH Q2H PRN PRN Reason: Pain Last Admin: 11/13/18 16:50 Dose: 0.5 mg Admin: 11/13/18 14:10 Dose: 0.5 mg Admin: 11/11/18 21:04 Dose: 0.5 mg Lactated Ringer's (Ringers, Lactated) 1,000 mls @ 125 mls/hr IV ASDIRECTED PENDING SALE TO [facility] Last Admin: 11/14/18 00:59 Dose: 125 mls/hr Infusion: 11/13/18 22:16 Dose: 125 mls/hr Admin: 11/13/18 14:16 Dose: 125 mls/hr Infusion: 11/13/18 14:16 Dose: 125 mls/hr Admin: 11/13/18 11:17 Dose: 125 mls/hr Infusion: 11/13/18 09:40 Dose: 125 mls/hr Admin: 11/13/18 01:40 Dose: 125 mls/hr Infusion: 11/13/18 01:08 Dose: 125 mls/hr Admin: 11/12/18 17:08 Dose: 125 mls/hr Infusion: 11/12/18 13:58 Dose: 125 mls/hr Admin: 11/12/18 05:58 Dose: 125 mls/hr Infusion: 11/12/18 03:36 Dose: 125 mls/hr Admin: 11/11/18 19:36 Dose: 125 mls/hr Ampicillin Sodium/Sulbactam (Sodium 1.5 gm/ Sodium Chloride) 50 mls @ 100 mls/ hr IV Q6H PENDING SALE TO [facility] Last Admin: 11/14/18 02:50 Dose: 100 mls/hr Admin: 11/13/18 19:30 Dose: 100 mls/hr Admin: 11/13/18 14:45 Dose: 100 mls/hr Admin: 11/13/18 08:13 Dose: 100 mls/hr Admin: 11/13/18 01:40 Dose: 100 mls/hr Admin: 11/12/18 20:11 Dose: 100 mls/hr Admin: 11/12/18 13:58 Dose: 100 mls/hr Aztreonam 1 gm/ Sodium (Chloride) 50 mls @ 100 mls/hr IV Q8HR PENDING SALE TO [facility] Last Admin: 11/14/18 05:35 Dose: 100 mls/hr Infusion: 11/13/18 22:16 Dose: 100 mls/hr Admin: 11/13/18 21:46 Dose: 100 mls/hr Infusion: 11/13/18 15:33 Dose: 100 mls/hr Admin: 11/13/18 15:03 Dose: 100 mls/hr Infusion: 11/13/18 06:28 Dose: 100 mls/hr Admin: 11/13/18 05:58 Dose: 100 mls/hr Infusion: 11/12/18 22:24 Dose: 100 mls/hr Admin: 11/12/18 21:54 Dose: 100 mls/hr Infusion: 11/12/18 15:32 Dose: 100 mls/hr Admin: 11/12/18 15:02 Dose: 100 mls/hr Lactulose (Chronulac) 20 gm PO Q12H PRN PRN Reason: Constipation Lorazepam (Ativan) 0.5 mg IVPUSH Q4H PRN PRN Reason: Nausea Metoprolol Tartrate (Lopressor) 37.5 mg PO TID PENDING SALE TO [facility] Last Admin: 11/13/18 21:45 Dose: 37.5 mg Admin: 11/13/18 14:03 Dose: 37.5 mg Admin: 11/13/18 07:00 Dose: 37.5 mg Admin: 11/13/18 06:38 Dose: 37.5 mg Admin: 11/12/18 21:49 Dose: 37.5 mg Admin: 11/12/18 15:02 Dose: 37.5 mg Admin: 11/12/18 10:19 Dose: Not Given Admin: 11/11/18 21:35 Dose: 37.5 mg Ondansetron HCl (Zofran) 4 mg IVPUSH Q4H PRN PRN Reason: Nausea/Vomiting Pantoprazole Sodium (Protonix Iv) 40 mg IVPUSH Q24H LO Last Admin: 11/13/18 17:53 Dose: 40 mg Admin: 11/12/18 18:30 Dose: 40 mg Sodium Chloride (Saline Flush) 10 ml FLUSH ASDIRECTED PRN PRN Reason: Keep Vein Open - Assessment Assessment (Free Text/Narrative):: Stef Claros is a 73 yo male s/o 1 day after cholecystectomy due to acute cholecystitis. He is healing well and shows no outward signs of infection. His WBC is normal at 6.7, total bili is 0.7, and AST is slightly elevated at 44, temp of 35.9 C. His pain is well controlled. 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 We would recommend 1 more day of his current IV abx; no results from the gallbladder fluid cultures yet. No barriers to advancing diet. - Plan Plan (Free Text/Narrative):: Cholecystitis -continue IV abx 1 more day -Switch MARKET RELATIONSHIP MANAGER to oral Tylenol -CMP in the AM -Milk of Mag for bowel stimulation -Regular diet
[2018-11-14] MEDS: Albuterol/Ipratropium 3.0-0.5 MG/3 ML Neb Soln NEB SCH ×4 (07:09→20:07)
[2018-11-14] MEDS ORDERED: HYDROmorphone 2 MG Tab PO PRN (08:16)
[2018-11-14] MEDS ORDERED: Ondansetron 4 MG Tab.DIS PO PRN (08:18)
[2018-11-14] MEDS: Metoprolol Tartrate 25 MG Tab PO SCH ×3 (08:42→20:09)
[2018-11-14] MEDS: Allopurinol 300 MG Tab PO SCH (08:42)
[2018-11-14] MEDS: Aspirin 325 MG Tab.EC PO SCH (08:43)
[2018-11-14] MEDS ORDERED: Pantoprazole 40 MG Tab.CR PO SCH (16:30)
[2018-11-15] MEDS: Gabapentin 400 MG Cap PO SCH (02:17)
[2018-11-15] MEDS: Ampicillin/Sulbactam Na 1.5 GM in Sodium Chloride 0.9% 50 ML IV SCH ×2 (02:17→07:28)
[2018-11-15] MEDS ORDERED: Furosemide 20 MG/2 ML VIAL IVPUSH ONE (06:27)
[2018-11-15] MEDS: Albuterol/Ipratropium 3.0-0.5 MG/3 ML Neb Soln NEB SCH (07:15)
[2018-11-15] MEDS: Aspirin 325 MG Tab.EC PO SCH (08:28)
[2018-11-15] MEDS: Allopurinol 300 MG Tab PO SCH (08:28)
[2018-11-15] MEDS: Metoprolol Tartrate 25 MG Tab PO SCH (08:29)
[2018-11-15 08:30] VITALS: BP 121/66
[2018-11-15] MEDS ORDERED: Magnesium Hydroxide 400 MG/5 ML Susp 30 ML Cup PO SCH (09:00)
[2018-11-15] MEDS ORDERED: Apixaban 5 MG Tab PO SCH (09:00)
--- NOTE | 2018-11-15 13:12 | DISCH ---
FINAL DIAGNOSES: 1. Perforated acute cholecystitis associated with right subphrenic and right subhepatic abscesses. 2. History of chronic obstructive pulmonary disease. 3. History of atrial fibrillation. 4. History of gout. 5. History of chronic constipation. OPERATIVE PROCEDURES: This was done on 11/13/2018; diagnostic laparoscopy with, 1. Cholecystectomy. 2. Drainage of right subphrenic abscess. 3. Drainage of right subhepatic abscess. HOSPITAL COURSE: This 73-year-old male presenting with acute cholecystitis. He has been on Eliquis, so he was admitted with IV antibiotics allowing time for the Eliquis to wear off. On 11/13/2018, he underwent a laparoscopic cholecystectomy. Had severe acute cholecystitis with focal necrosis of the gallbladder and perforation with bile purulent material in two collections, one adjacent to the gallbladder in the pericholecystic and right subhepatic area, and a second segregated abscess cavity in the right subphrenic space. Both of these were drained and cholecystectomy completed. Postoperatively, his labs looked satisfactory. He has not moved his bowels as of yet. Normally, he has some chronic constipation and uses lactulose p.r.n. He will be discharged home on his usual medications plus Dilaudid 2 mg q.4 hours p.r.n. pain, #30; Tylenol 650 mg p.o. q.4 hours p.r.n.; and Augmentin 875 mg p.o. b.i.d. x5 days. He will be instructed to resume his Eliquis at this point. He was sent home with two doses of milk of magnesia to take as needed and also to use the lactulose as needed for constipation. Followup will be with Gabriela Herron at [facility] on 11/22/2018.
--- NOTE | 2018-11-15 13:47 | OR ---
DATE OF PROCEDURE: 11/13/2018 SURGEON: Glen Blas MD PREOPERATIVE DIAGNOSIS: Acute cholecystitis. POSTOPERATIVE DIAGNOSIS: Perforated acute cholecystitis with separate right subphrenic and right subhepatic abscesses. OPERATIVE PROCEDURE: Diagnostic laparoscopy with: 1. Cholecystectomy (67535). 2. Drainage of right subphrenic abscess (65132). 3. Drainage of right subhepatic abscess (89241). ANESTHESIA: General. FOOD AND BEVERAGE MANAGER: Francisco Coronado MS3. INDICATIONS FOR PROCEDURE: This is a 73-year-old who was admitted on Monday with a picture of acute cholecystitis. He was started on antibiotics. He has been on Xarelto, and we allowed some time for that to wear off. At this point, the patient is to undergo a laparoscopic and, if necessary, open cholecystectomy. Potential risks of the procedure including bleeding, infection, injury to underlying viscera, possible migration of stones in the common bile duct requiring additional procedures for correction were all reviewed, along with the remote possibility of cardiopulmonary, septic, or hemorrhagic complications leading to , and the patient wishes to proceed. DETAILS OF PROCEDURE: The patient was taken to the operating room, and after general endotracheal anesthesia was induced, the abdomen was prepped and draped. Initially, a transverse epigastric incision was made and peritoneal cavity entered under direct vision with an Optiview trocar, inflated to 15 mmHg pressure of CO2. Laparoscope was then reinserted. No underlying trocar insertion site injuries were seen. Following this, a 12 mm subumbilical trocar was placed, along with a 5 mm right abdominal trocar. Transversus abdominis plane blocks were then placed bilaterally. At this point, the upper abdomen was examined. The patient was noted to have a two distinct thinly purulent fluid collections, and they appeared to be also bile-stained, likely related to some perforation of the gallbladder. One was in the right subphrenic area. This was evacuated and cultures were obtained. As one lifted up the gallbladder, a second separate abscess cavity was encountered. This was in the pericholecystic area or right subhepatic region. This was also evacuated at this point. The gallbladder had some omental adhesions, which were taken down with Harmonic scalpel. This revealed some focal necrotic areas within the gallbladder wall. The exact site of perforation was not clear, but given the bile- stained condition of the two abscesses, there clearly was, at some point, a gallbladder perforation. The gallbladder was extremely friable. As dissection continued downward toward the gallbladder neck/cystic duct junction, that area was somewhat ill-defined. Given this, we then switched to an above down approach with regard to resection, using predominantly Harmonic scalpel, along with some blunt dissection and occasional electrocautery. During the course of this, some fragments of the gallbladder broke off, likely related to some necrosis involving the gallbladder. As some spilled, these were all that could be identified and subsequently removed with removal of gallbladder through the specimen bag. As one dissected further, eventually the entire gallbladder was freed up from the gallbladder bed. At that point, it was fairly clear where the cystic duct/gallbladder neck junction was and the cystic artery. Both of these were then divided with the SANGEETA mauricio, the cystic duct/gallbladder neck junction with purple load, and the cystic artery with the freeman load. Some additional vascular-laden tissues behind the gallbladder were divided with the harmonic scalpel, and the gallbladder was then freed up from the liver bed. This along with the retained stones were then all carefully placed into a specimen bag, which was retrieved through the epigastric trocar site. At this point, the area of dissection was inspected. No bleeding or bile leaks were seen. The area of the cystohepatic triangle and divided ducts and artery was reinforced with some fibrin sealant, as was the gallbladder bed itself. During the course of the dissection, a fair bit of bleeding occurred, but once the gallbladder was out, bleeding appeared to be minimal and was easily controlled with electrocautery. Two Odilon-Elizabeth drains were placed. An additional 5 mm trocar was placed in the more dependent portion of the right subcostal area. Drain for this area was placed in the subhepatic space in the event that a bile leak might occur, and the more proximal drain was placed in the right subphrenic space and positioned in the far posterior dependent portion over the liver. At this point, no further problems were noted. The trocars were sequentially removed. The fascia at the 12 mm sites was closed with 0 Vicryl stitch at the fascia level and 4-0 Vicryl skin stitch. Dressing was applied. The patient was taken to the recovery room in satisfactory condition. There were no evident complications. Glen Blas MD /[id number]
[2018-11-15] MEDS ORDERED: Pneumococcal Polyvalent-23 Vaccine 0.5 ML SDV IM ONE ×2 (14:00)
== END 2018-11-15 08:40 | disposition home or self-care (01) | DRG 417 ==
LOC: JP.ED 14:40 → JP.MS 16:40
PROVIDERS: ADMIT Hospitalist; ATTEND Internal Medicine
PROC: 0FT44ZZ Resection of Gallbladder, Percutaneous Endoscopic Approach (ICD-10-PCS; principal; 2018-11-13)
PROC: 0W9G40Z Drainage of Peritoneal Cavity with Drainage Device, Percutaneous Endoscopic Approach (ICD-10-PCS; 2018-11-13)
DX: K80.00 Calculus of gallbladder with acute cholecystitis without obstruction (principal); K65.1 Peritoneal abscess; K82.A2 Perforation of gallbladder in cholecystitis; I48.91 Unspecified atrial fibrillation; J44.9 Chronic obstructive pulmonary disease, unspecified; N18.3 Chronic kidney disease, stage 3 (moderate); Z79.899 Other long term (current) drug therapy; Z79.01 Long term (current) use of anticoagulants; Z79.82 Long term (current) use of aspirin; H54.7 Unspecified visual loss; H91.90 Unspecified hearing loss, unspecified ear; F10.10 Alcohol abuse, uncomplicated; M10.9 Gout, unspecified; K59.09 Other constipation
CPT/HCPCS: 36415 ×2; 74022; 74176; 76705; 80053; 81001; 82150; 83690 ×2; 84484; 85025; 93005; 93010; 96361; 96374 ×2; 96375; 99284; 99285 ×2; J1170 ×3; J2060; J2405; J7030; 80048; 83735; 83880; 84100; 85027; 87070; 87075; 87205; 88304; 94640; 94762; A9270-GY; C9113; J0171; J0287; J0330; J1100; J1940; J2185; J2704; J2710; J2795; J3010; J3490; J7050; J7120; J7620-GY

== ENCOUNTER 2020-03-01 12:23 | Observation (INO) | payer MEDICARE, OTHER ==
[2020-03-01] MEDS ORDERED: Sodium Chloride 0.9% 10 ML Syringe FLUSH PRN (12:25)
--- NOTE | 2020-03-01 12:34 | EDM.PDOC ---
ED HPI GENERAL MEDICAL PROBLEM - General Chief Complaint: Neurological Problem Stated Complaint: MEDICAL UNRESPONSIVE Time Seen by Provider: 03/01/20 12:24 Source of Information: Reports: Other (Friends that brought him to hospital) History Limitations: Reports: Altered Mental Status - History of Present Illness INITIAL COMMENTS - FREE TEXT/NARRATIVE: 74-year-old male brought by private vehicle to emergency department due to unresponsiveness. According to friends last seen well around 5 AM this morning. Friends returned later to go fishing and found patient unresponsive sitting in a chair in the garage. They promptly put him in their vehicle and brought him to the emergency department. They indicate there was a empty 1.75 L bottle of Maynard Colon next to him. They note they found him sitting in the chair with abrasions on his arm and nose. Unable to report any known medical history or other events surrounding incident. 12:40 PM patient now verbally responsive and additional history is obtained. Patient states that he was consuming alcohol last evening while in the garage. He states at one point in time he got up to go into the house to go to bed but fell on garage floor. He was able to get himself back up to a chair but never went back into the house. It is reported that his son Savage checked on him around 5 AM but it is not clear what brought down to see what back into the house to go to bed according to the friend Piper who brought him to the emergency department. Piper states that he was called around noon and found Cedric very unresponsive sitting in a chair in the garage. Stef now reports that he is experiencing pain in his left chest and lower abdomen. He also notes discomfort in his left elbow area. He denies any other symptoms or concerns. - Related Data Allergies Allergy/AdvReac Type Severity Reaction Status Date / Time No Known Allergies Allergy Verified 03/01/20 12:38 Home Meds: Home Meds Allopurinol [Zyloprim] 300 mg PO DAILY 01/11/16 [History] Naproxen 650 mg PO Q6H PRN 01/11/16 [History] Acetaminophen [Tylenol] 325 - 650 mg PO ASDIRECTED PRN 11/11/18 [History] Apixaban [Eliquis] 5 mg PO BID 11/11/18 [History] Aspirin 325 mg PO DAILY 11/11/18 [History] Furosemide [Lasix] 20 mg PO DAILY 11/11/18 [History] Ipratropium/Albuterol Sulfate [Iprat-Albut 0.5-3(2.5) mg/3 ml] 3 ml INH Q6H 11/11/18 [History] Lactulose 30 ml PO Q12H PRN 11/11/18 [History] Metoprolol Tartrate 37.5 mg PO TID 11/11/18 [History] Amoxicillin/Clavulanate K [Augmentin 875-125 MG] 1 tab PO BID 5 Days #10 tablet 11/15/18 [Rx] HYDROmorphone [Dilaudid] 2 mg PO Q4H PRN #30 tab 11/15/18 [Rx] Past Medical History HEENT History: Reports: Hard of Hearing, Impaired Vision Cardiovascular History: Reports: Afib, Other (See Below) Other Cardiovascular History: V fib Respiratory History: Reports: COPD Genitourinary History: Reports: Renal Disease Other Genitourinary History: stage 3 kidney disease - Infectious Disease History Infectious Disease History: Reports: Chicken Pox - Past Surgical History HEENT Surgical History: Reports: Oral Surgery, Other (See Below) Other HEENT Surgeries/Procedures: tympanic bone surgery GI Surgical History: Reports: Appendectomy, Colonoscopy, Hernia, Abdominal, Hernia Repair/Other Social & Family History - Family History Family Medical History: Unobtainable - Caffeine Use Caffeine Use: Reports: Coffee Review of Systems - Review of Systems Review Of Systems: Unable To Obtain (altered mental status and alcohol intoxication) Reason Not Obtained: altered mental status/acuity of medical condition ED EXAM, GENERAL - Physical Exam Exam: See Below Exam Limited By: Altered Mental Status General Appearance: Obtunded Eye Exam: Bilateral Eye: PERRL Ears: Normal External Exam, Other (Bilateral hearing aids present) Nose: Other (Abrasion to tip of nose). No: No Blood, Nasal Deformity Throat/Mouth: Normal Inspection, No Airway Compromise Head: Other (Abrasion on nose). No: Facial Swelling, Facial Tenderness Neck: Normal Inspection. No: Non-Tender, Limited Range of Motion, Tender Lateral, Tender Midline Respiratory/Chest: No Respiratory Distress, Lungs Clear, Normal Breath Sounds, No Accessory Muscle Use, Chest Non-Tender Cardiovascular: Normal Peripheral Pulses, Regular Rate, Rhythm, No JVD, No Murmur, Other (3+ pitting edema bilateral lower legs). No: No Edema Peripheral Pulses: 2+: Carotid (L), Carotid (R), Femoral (L), Femoral (R) GI/Abdominal: Soft, Non-Tender, No Distention, Pelvis Stable (Male) Exam: Normal Inspection Back Exam: Normal Inspection. No: Paraspinal Tenderness, Vertebral Tenderness Extremities: Normal Inspection, Normal Range of Motion, Non-Tender, Pedal Edema Neurological: Slow to Respond, Other (GCS 14 initially on arrival, GCS 15 10 min after arrival) Skin Exam: Other (Large skin tear to left lateral elbow. Abrasion to bridge of nose) EKG INTERPRETATION EKG Date: 03/01/20 Time: 12:17 Rhythm: NSR [place]: LAD-Left [place] Deviation P-Wave: Present QRS: Normal ST-T: Normal QT: Normal Comparison: NA - No Prior EKG EKG Interpretation Comments: Normal sinus rhythm Course - Vital Signs Last Recorded V/S: Last Vital Signs Temp 97.4 F 03/01/20 12:33 Pulse 77 03/01/20 15:05 Resp 20 03/01/20 15:05 BP 129/60 03/01/20 15:05 Pulse Ox 97 03/01/20 15:05 Orthostatic Blood Pressure [ 160/85 Standing] Orthostatic Blood Pressure [ 150/79 Sitting] Orthostatic Blood Pressure [ 149/69 Supine] - Orders/Labs/Meds Orders: Active Orders 24 hr Category Date Time Status Blood Glucose Check, Bedside [RC] ONETIME Care 03/01/20 12:28 Active Cervical Spine Precautions [RC] ASDIRECTED Care 03/01/20 12:25 Active EKG Documentation Completion [RC] ASDIRECTED Care 03/01/20 12:27 Active Peripheral IV Care [RC] . DIRECTED Care 03/01/20 12:27 Active Pulse Oximetry [RC] CONTINUOUS Care 03/01/20 12:25 Active Iopamidol [Isovue-300 (61%)] Med 03/01/20 13:15 Active 100 ml IV . DIRECTED Sodium Chloride 0.9% [Normal Saline] 80 ml Med 03/01/20 13:15 Active IV ASDIRECTED Sodium Chloride 0.9% [Saline Flush] Med 03/01/20 12:25 Active 10 ml FLUSH ASDIRECTED PRN Peripheral IV Insertion Adult [OM.PC] Urgent Oth 03/01/20 12:25 Ordered EKG 12 Lead [EK] Stat Ther 03/01/20 12:25 Ordered Medication Orders Sodium Chloride (Normal Saline) 80 mls @ 3 mls/sec IV ASDIRECTED LO Last Admin: 03/01/20 13:33 Dose: 3 mls/sec Documented by: UMM Iopamidol (Isovue-300 (61%)) 100 ml IV . DIRECTED LO Last Admin: 03/01/20 13:33 Dose: 100 ml Documented by: UMM Sodium Chloride (Saline Flush) 10 ml FLUSH ASDIRECTED PRN PRN Reason: Keep Vein Open Labs: Laboratory Tests 03/01/20 03/01/20 03/01/20 Range/Units 12:25 12:25 12:25 WBC 7.9 (4.5-11.0) K/uL RBC 5.91 H (4.30-5.90) M/uL Hgb 18.4 H* D (12.0-15.0) g/dL Hct 54.9 H (40.0-54.0) % MCV 93 (80-98) fL MCH 31 (27-31) pg MCHC 34 (32-36) % Plt Count 206 (150-400) K/uL Neut % (Auto) 45 (36-66) % Lymph % (Auto) 45 H (24-44) % O'Brien % (Auto) 8 H (2-6) % Eos % (Auto) 1 L (2-4) % Baso % (Auto) 1 (0-1) % PT 12.0 (9.5-12.0) sec INR 1.10 (0.80-1.20) Sodium 132 L (140-148) mmol/L Potassium 4.4 (3.6-5.2) mmol/L Chloride 95 L (100-108) mmol/L Carbon Dioxide 21 (21-32) mmol/L Anion Gap 20.4 H (5.0-14.0) mmol/L BUN 18 (7-18) mg/dL Creatinine 1.4 H (0.8-1.3) mg/dL Est Cr Clr Drug Dosing TNP Estimated GFR (MDRD) 50 L (>60) Glucose 78 (74-106) mg/dL POC Glucose (74-106) mg/dL Calcium 8.9 (8.5-10.1) mg/dL Ethyl Alcohol mg/dL Blood Type Gel Antibody Screen 03/01/20 03/01/20 03/01/20 Range/Units 12:25 12:25 12:38 WBC (4.5-11.0) K/uL RBC (4.30-5.90) M/uL Hgb (12.0-15.0) g/dL Hct (40.0-54.0) % MCV (80-98) fL MCH (27-31) pg MCHC (32-36) % Plt Count (150-400) K/uL Neut % (Auto) (36-66) % Lymph % (Auto) (24-44) % O'Brien % (Auto) (2-6) % Eos % (Auto) (2-4) % Baso % (Auto) (0-1) % PT (9.5-12.0) sec INR (0.80-1.20) Sodium (140-148) mmol/L Potassium (3.6-5.2) mmol/L Chloride (100-108) mmol/L Carbon Dioxide (21-32) mmol/L Anion Gap (5.0-14.0) mmol/L BUN (7-18) mg/dL Creatinine (0.8-1.3) mg/dL Est Cr Clr Drug Dosing Estimated GFR (MDRD) (>60) Glucose (74-106) mg/dL POC Glucose 77 (74-106) mg/dL Calcium (8.5-10.1) mg/dL Ethyl Alcohol 209 mg/dL Blood Type O NEGATIVE Gel Antibody Screen Negative Meds: Medications Generic Name Dose Route Start Last Admin Trade Name Freq PRN Reason Stop Dose Admin Sodium Chloride 80 mls @ 3 mls/sec 03/01/20 13:15 03/01/20 13:33 Normal Saline IV 3 mls/sec ASDIRECTED LO Administration Iopamidol 100 ml 03/01/20 13:15 03/01/20 13:33 Isovue-300 (61%) IV 100 ml . DIRECTED LO Administration Sodium Chloride 10 ml 03/01/20 12:25 Saline Flush FLUSH ASDIRECTED PRN Keep Vein Open Discontinued Medications Generic Name Dose Route Start Last Admin Trade Name Freq PRN Reason Stop Dose Admin Sodium Chloride 10 ml 03/01/20 13:08 03/01/20 13:33 Saline Flush FLUSH 03/01/20 13:09 10 ml ONETIME ONE Administration Sodium Chloride 1,000 ml 03/01/20 14:41 Normal Saline IV 03/01/20 14:42 NOW STA - Radiology Interpretation Free Text/Narrative:: CT head: Indication Trauma IMPRESSION: 1. No acute intracranial abnormality. 2. Postoperative changes consistent with remote left frontal temporal craniectomy and skin flap. 3. There is a 2 mm calcification along the right sylvian fissure and a right temporo occipital sulci calcification are nonspecific but could represent vascular calcification or chronic calcified embolus. These are unlikely to be clinically significant. Report per radiology CT cerv-spine: Indication Trauma Impression: 1. Multilevel advanced degenerative changes in the cervical spine are detailed above. 2. No evidence of acute fracture, dislocation or subluxation. Report per radiology CT Chest/Abd/Pelvis w/IV: Indication Trauma Impression: 1. No acute findings in the chest. No solid or hollow organ injury. No free fluid or free air. 2. No fractures visualized. 3. Diverticulosis. Report per radiology - Re-Assessments/Exams Free Text/Narrative Re-Assessment/Exam: 03/01/20 13:58 Patient arouses from sleep without difficulty. GCS remains 15. C-collar removed. Continues to have some confusion about events. Remains unsteady on her feet. 03/01/20 14:40 Free Text/Narrative Re-Assessment/Exam: 03/01/20 14:[address] Carlisle who will evaluate patient in ED for consideration of hospitalization. Departure - Departure Time of Disposition: 15:00 Disposition: Admitted As Inpatient 67 Condition: Good Clinical Impression: Alcoholic intoxication, Closed head injury, Skin tear - Discharge Information Referrals: PCP,None [Primary Care Provider] - Forms: ED Department Discharge Additional Instructions: Consulted with Dr. Carlisle, admit to his medical service Sepsis Event Note (ED) - Focused Exam Vital Signs: Vital Signs Temp Pulse Resp BP Pulse Ox 03/01/20 15:05 77 20 129/60 97 03/01/20 14:33 74 22 H 144/67 H 96 03/01/20 12:33 97.4 F 67 17 143/81 H 96 - My Orders Last 24 Hours: My Active Orders 03/01/20 12:25 Cervical Spine Precautions [RC] ASDIRECTED Pulse Oximetry [RC] CONTINUOUS Sodium Chloride 0.9% [Saline Flush] 10 ml FLUSH ASDIRECTED PRN Peripheral IV Insertion Adult [OM.PC] Urgent EKG 12 Lead [EK] Stat 03/01/20 12:27 EKG Documentation Completion [RC] ASDIRECTED Peripheral IV Care [RC] . DIRECTED 03/01/20 12:28 Blood Glucose Check, Bedside [RC] ONETIME 03/01/20 13:15 Iopamidol [Isovue-300 (61%)] 100 ml IV . DIRECTED Sodium Chloride 0.9% [Normal Saline] 80 ml IV ASDIRECTED - Assessment/Plan Last 24 Hours: My Active Orders 03/01/20 12:25 Cervical Spine Precautions [RC] ASDIRECTED Pulse Oximetry [RC] CONTINUOUS Sodium Chloride 0.9% [Saline Flush] 10 ml FLUSH ASDIRECTED PRN Peripheral IV Insertion Adult [OM.PC] Urgent EKG 12 Lead [EK] Stat 03/01/20 12:27 EKG Documentation Completion [RC] ASDIRECTED Peripheral IV Care [RC] . DIRECTED 03/01/20 12:28 Blood Glucose Check, Bedside [RC] ONETIME 03/01/20 13:15 Iopamidol [Isovue-300 (61%)] 100 ml IV . DIRECTED Sodium Chloride 0.9% [Normal Saline] 80 ml IV ASDIRECTED Assessment:: 74-year-old male presenting with altered mental status secondary to acute alcohol intoxication and fall. Patient consuming crown royal at home in his garage throughout the course of the night and prior authorization nurse till approximately 4 AM. Early this morning attempted to go into the house but was unable to do so and fell to the ground. Was able to get himself back into a chair in the garage where he remained until he was found by friends around noon relatively unresponsive. At that time he was brought to this emergency room for evaluation. Initially he had a GCS of 14 which rapidly improved to a GCS of 15. A series of CT imaging of the head, neck, chest, abdomen and pelvis were obtained. No acute traumatic findings are identified on the studies. His cervical spine was cleared by myself following CT imaging of the neck. Laboratory studies reviewed. He is hemoconcentrated with a hemoglobin of 18. Blood alcohol level is 200. He is not coagulopathic. He was started on IV fluid. His left elbow skin tear was bandaged. Clinical evaluation of the elbow does not demonstrate signs of fracture. His primary care doctor, Dr. Carlisle, was consulted and evaluated the patient in the emergency department. A decision was made to admit to the medical service for further management. Medically stable at time of admission. Plan: 1. Admit to medical service for further management. 2. Fall precautions 3. Alcohol withdrawal precautions
[2020-03-01] MEDS ORDERED: Sodium Chloride 0.9% 10 ML Syringe FLUSH ONE (13:08)
[2020-03-01] MEDS ORDERED: Sodium Chloride 0.9% 80 ML IV SCH (13:15)
[2020-03-01] MEDS ORDERED: Iopamidol 612 MG/ML 100 ML Bottle IV SCH (13:15)
--- NOTE | 2020-03-01 13:41 | CRLCT ---
INDICATION: Trauma. TECHNIQUE: CT of the head without contrast. Coronal and sagittal reformats. Bone and soft tissue algorithms. COMPARISON: No prior studies available for comparison at this institution. FINDINGS: No acute intracranial hemorrhage or extra-axial collection. No evidence of acute cortical infarction. Postoperative changes consistent with remote left frontal temporal craniectomy and skin flap. No mass effect or midline shift. Vascular calcifications within the carotid siphons. There is a 2 mm calcification along the right sylvian fissure and a right temporo occipital sulci calcification are nonspecific but could represent vascular calcification or chronic calcified embolus. Orbital contents are normal. No calvarial fractures. No lytic or sclerotic osseous lesions within the calvarium or skull base. Scalp and other imaged soft tissue structures are normal. Mastoid air cells are clear. IMPRESSION: 1. No acute intracranial abnormality. 2. Postoperative changes consistent with remote left frontal temporal craniectomy and skin flap. 3. There is a 2 mm calcification along the right sylvian fissure and a right temporo occipital sulci calcification are nonspecific but could represent vascular calcification or chronic calcified embolus. These are unlikely to be clinically significant. Please note that all CT scans at this facility use dose modulation, iterative reconstruction, and/or weight-based dosing when appropriate to reduce radiation dose to as low as reasonably achievable. Dictated by Melvin Stevens MD @ Mar 01 2020 1:32PM Signed by Dr. Melvin Stevens @ Mar 01 2020 1:41PM
--- NOTE | 2020-03-01 13:45 | CRLCT ---
HISTORY: Left chest abdominal pain after fall Technique: Contrast-enhanced CT chest abdomen and pelvis. Findings: Normal caliber thoracic aorta. Enlargement of main pulmonary artery which can be seen with pulmonary arterial hypertension. No mediastinal hilar adenopathy. No pericardial effusion. No mediastinal hematoma. No pleural effusion. The heart is mildly enlarged. The lungs appear clear. No pneumothorax. Pancreas adrenal glands are unremarkable. Spleen is unremarkable. Small hiatal hernia. Cholecystectomy. Normal caliber abdominal aorta. Symmetric enhancement both kidneys. Tiny cyst left kidney. Diverticulosis. Normal appendix. Urinary bladder is unremarkable. Prostate gland within normal limits. Left fat containing inguinal hernia. No free fluid or free air seen. No fractures are seen. Impression: 1. No acute findings in the chest. No solid or hollow organ injury. No free fluid or free air. 2. No fractures visualized. 3. Diverticulosis. Please note that all CT scans at this facility use dose modulation, iterative reconstruction, and/or weight-based dosing when appropriate to reduce radiation dose to as low as reasonably achievable. Dictated by Claudia Thurston MD @ Mar 01 2020 1:35PM Signed by Dr. Claudia Thurston @ Mar 01 2020 1:45PM
--- NOTE | 2020-03-01 13:49 | CRLCT ---
Indication: Trauma Technique: Noncontrast axial CT of the cervical spine with coronal and sagittal reformats are provided. Comparison: No prior studies available for comparison at this institution. Findings: Multilevel advanced degenerative changes in the cervical spine. No acute fracture, dislocation, or subluxation. No prevertebral or paraspinal soft tissue swelling. The craniocervical junction is unremarkable. Visualized posterior fossa structures are grossly normal. Grade 1 anterolisthesis at C3-4 and retrolisthesis C5-6 C6-7 and C7-T1. There is autofusion versus incomplete segmentation of the T2 and T3 vertebral bodies. Retropharyngeal course of the internal carotid arteries. Carotid artery atherosclerosis. C1-2: No spinal canal stenosis. C2-3: No spinal canal stenosis. Mild left neural from narrowing by uncovertebral spurring and facet arthrosis. C3-4: Grade 1 anterolisthesis. Posterior endplate osteophytic spurring. Mild spinal canal narrowing. Severe left and right neural from narrowing due to uncovertebral spurring and facet arthrosis. C4-5: Retrolisthesis. Moderate disc height loss. Posterior disc osteophyte complex results in moderate spinal canal narrowing. Severe right and moderate left neural from narrowing due to uncovertebral spurring and facet arthrosis. C5-6: Mild posterior endplate osteophytic spurring and retrolisthesis. Mild spinal canal narrowing. Moderate left and mild right neural from narrowing due to uncovertebral spurring and facet arthrosis. C6-7: Moderate disc height loss, retrolisthesis, posterior disc osteophyte complex results in mild to moderate spinal canal narrowing. Severe right and moderate left neural from narrowing due to uncovertebral spurring and facet arthrosis. C7-T1: No spinal canal stenosis. Moderate left neural from narrowing craniocaudally. T1-2: No spinal canal or neural foramina narrowing. T2-3: No spinal canal or neural from narrowing. Autofusion or incomplete segmentation. T3-4: No spinal canal stenosis. Moderate right neural foramina narrowing. Impression: 1. Multilevel advanced degenerative changes in the cervical spine are detailed above. 2. No evidence of acute fracture, dislocation or subluxation. Please note that all CT scans at this facility use dose modulation, iterative reconstruction, and/or weight-based dosing when appropriate to reduce radiation dose to as low as reasonably achievable. Dictated by Melvin Stevens MD @ Mar 01 2020 1:41PM Signed by Dr. Melvin Stevens @ Mar 01 2020 1:48PM
[2020-03-01] MEDS ORDERED: Sodium Chloride 0.9% 10 ML SDV IV STA (14:41)
--- NOTE | 2020-03-01 14:51 | PCM.HP.2 ---
H&P History of Present Illness - General Date of Service: 03/01/20 Source of Information: Patient, EMS - History of Present Illness Initial Comments - Free Text/Narative: 74-year-old male brought by private vehicle to emergency department due to unresponsiveness. According to friends last seen well around 5 AM this morning. Friends returned later to go fishing and found patient unresponsive sitting in a chair in the garage. They promptly put him in their vehicle and brought him to the emergency department. They indicate there was a empty 1.75 L bottle of [place] next to him. They note they found him sitting in the chair with abrasions on his arm and nose. Unable to report any known medical history or other events surrounding incident. He admits now he macie about 1/2 inch of whisky in a 8 oz glass and had 2 beers yesterday afternoon. Onset of Symptoms: Reports: Today Duration of Symptoms: Reports: Hour(s): Location: Reports: Other (unresopnsive in the garage thid morning) - Related Data Allergies/Adverse Reactions: Allergies Allergy/AdvReac Type Severity Reaction Status Date / Time No Known Allergies Allergy Verified 03/01/20 12:38 Home Medications: Home Meds Allopurinol [Zyloprim] 300 mg PO DAILY 01/11/16 [History] Naproxen 650 mg PO Q6H PRN 01/11/16 [History] Acetaminophen [Tylenol] 325 - 650 mg PO ASDIRECTED PRN 11/11/18 [History] Apixaban [Eliquis] 5 mg PO BID 11/11/18 [History] Aspirin 325 mg PO DAILY 11/11/18 [History] Furosemide [Lasix] 20 mg PO DAILY 11/11/18 [History] Ipratropium/Albuterol Sulfate [Iprat-Albut 0.5-3(2.5) mg/3 ml] 3 ml INH Q6H 11/11/18 [History] Lactulose 30 ml PO Q12H PRN 11/11/18 [History] Metoprolol Tartrate 37.5 mg PO TID 11/11/18 [History] Amoxicillin/Clavulanate K [Augmentin 875-125 MG] 1 tab PO BID 5 Days #10 tablet 11/15/18 [Rx] HYDROmorphone [Dilaudid] 2 mg PO Q4H PRN #30 tab 11/15/18 [Rx] Past Medical History HEENT History: Reports: Hard of Hearing, Impaired Vision Cardiovascular History: Reports: Afib, Other (See Below) Other Cardiovascular History: V fib Respiratory History: Reports: COPD Genitourinary History: Reports: Renal Disease Other Genitourinary History: stage 3 kidney disease - Infectious Disease History Infectious Disease History: Reports: Chicken Pox - Past Surgical History HEENT Surgical History: Reports: Oral Surgery, Other (See Below) Other HEENT Surgeries/Procedures: tympanic bone surgery GI Surgical History: Reports: Appendectomy, Colonoscopy, Hernia, Abdominal, Hernia Repair/Other Social & Family History - Family History Family Medical History: Unobtainable - Tobacco Use Smoking Status *Q: Never Smoker - Caffeine Use Caffeine Use: Reports: Coffee H&P Review of Systems - Review of Systems: Review Of Systems: See Below General: Reports: Weakness HEENT: Reports: No Symptoms Pulmonary: Reports: No Symptoms Cardiovascular: Reports: No Symptoms Gastrointestinal: Reports: No Symptoms Genitourinary: Reports: No Symptoms Musculoskeletal: Reports: No Symptoms (bruise on the end of the nose) Psychiatric: Reports: No Symptoms Neurological: Reports: Weakness, Gait Disturbance Hematologic/Lymphatic: Reports: No Symptoms Immunologic: Reports: No Symptoms Exam - Exam Exam: See Below - Vital Signs Vital Signs: Last Vital Signs Temp 97.4 F 03/01/20 12:33 Pulse 67 03/01/20 12:33 Resp 17 03/01/20 12:33 BP 143/81 H 03/01/20 12:33 Pulse Ox 96 03/01/20 12:33 Orthostatic Blood Pressure [ 160/85 Standing] Orthostatic Blood Pressure [ 150/79 Sitting] Orthostatic Blood Pressure [ 149/69 Supine] - Exam General: Oriented, Mild Distress HEENT: PERRLA, Hearing Intact, Mucosa Moist & [place], Nares Patent, Normal Nasal Septum, Posterior Pharynx Clear, Conjunctiva Clear, EOMI, EACs Clear, TMs Clear Neck: Supple, Trachea Midline, 2 Lungs: Clear to Auscultation, Normal Respiratory Effort Cardiovascular: Regular Rate, Regular Rhythm GI/Abdominal Exam: Normal Bowel Sounds, Soft, Non-Tender, No Organomegaly, No Distention, No Abnormal Bruit, No Mass, Pelvis Stable Back Exam: Normal Inspection, Full Range of Motion, NT Extremities: Normal Inspection Peripheral Pulses: 1+: Radial (L), Radial (R) Skin: Warm, Dry, Intact, Wound Neurological: Cranial Nerves Intact, Reflexes Equal Bilateral, Abnormal Gait Neuro Extensive - Mental Status: Oriented x3 Neuro Extensive - Motor, Sensory, Reflexes: CN II-XII Intact DTR: 1+: Bicep (L), Bicep (R) Psychiatric: Withdrawal Symptoms - Patient Data Lab Results Last 24 hrs: Laboratory Results - last 24 hr 03/01/20 03/01/20 03/01/20 Range/Units 12:25 12:25 12:25 WBC 7.9 (4.5-11.0) K/uL RBC 5.91 H (4.30-5.90) M/uL Hgb 18.4 H* D (12.0-15.0) g/dL Hct 54.9 H (40.0-54.0) % MCV 93 (80-98) fL MCH 31 (27-31) pg MCHC 34 (32-36) % Plt Count 206 (150-400) K/uL Neut % (Auto) 45 (36-66) % Lymph % (Auto) 45 H (24-44) % [place] % (Auto) 8 H (2-6) % Eos % (Auto) 1 L (2-4) % Baso % (Auto) 1 (0-1) % PT 12.0 (9.5-12.0) sec INR 1.10 (0.80-1.20) Sodium 132 L (140-148) mmol/L Potassium 4.4 (3.6-5.2) mmol/L Chloride 95 L (100-108) mmol/L Carbon Dioxide 21 (21-32) mmol/L Anion Gap 20.4 H (5.0-14.0) mmol/L BUN 18 (7-18) mg/dL Creatinine 1.4 H (0.8-1.3) mg/dL Est Cr Clr Drug Dosing TNP Estimated GFR (MDRD) 50 L (>60) Glucose 78 (74-106) mg/dL POC Glucose (74-106) mg/dL Calcium 8.9 (8.5-10.1) mg/dL Ethyl Alcohol mg/dL Blood Type Gel Antibody Screen 03/01/20 03/01/20 03/01/20 Range/Units 12:25 12:25 12:38 WBC (4.5-11.0) K/uL RBC (4.30-5.90) M/uL Hgb (12.0-15.0) g/dL Hct (40.0-54.0) % MCV (80-98) fL MCH (27-31) pg MCHC (32-36) % Plt Count (150-400) K/uL Neut % (Auto) (36-66) % Lymph % (Auto) (24-44) % [place] % (Auto) (2-6) % Eos % (Auto) (2-4) % Baso % (Auto) (0-1) % PT (9.5-12.0) sec INR (0.80-1.20) Sodium (140-148) mmol/L Potassium (3.6-5.2) mmol/L Chloride (100-108) mmol/L Carbon Dioxide (21-32) mmol/L Anion Gap (5.0-14.0) mmol/L BUN (7-18) mg/dL Creatinine (0.8-1.3) mg/dL Est Cr Clr Drug Dosing Estimated GFR (MDRD) (>60) Glucose (74-106) mg/dL POC Glucose 77 (74-106) mg/dL Calcium (8.5-10.1) mg/dL Ethyl Alcohol 209 mg/dL Blood Type O NEGATIVE Gel Antibody Screen Negative Result Diagrams: 03/01/20 12:25 03/01/20 12:25 Sepsis Event Note - Evaluation Sepsis Screening Result: No Definite Risk - Focused Exam Vital Signs: Vital Signs Temp Pulse Resp BP Pulse Ox 03/01/20 12:33 97.4 F 67 17 143/81 H 96 Problem List Initiated/Reviewed/Updated: Yes Orders Last 24hrs: Active Orders 24 hr Category Date Time Status Blood Glucose Check, Bedside [RC] ONETIME Care 03/01/20 12:28 Active Cervical Spine Precautions [RC] ASDIRECTED Care 03/01/20 12:25 Active EKG Documentation Completion [RC] ASDIRECTED Care 03/01/20 12:27 Active Peripheral IV Care [RC] . DIRECTED Care 03/01/20 12:27 Active Pulse Oximetry [RC] CONTINUOUS Care 03/01/20 12:25 Active Iopamidol [Isovue-300 (61%)] Med 03/01/20 13:15 Active 100 ml IV . DIRECTED Sodium Chloride 0.9% [Normal Saline] 80 ml Med 03/01/20 13:15 Active IV ASDIRECTED Sodium Chloride 0.9% [Saline Flush] Med 03/01/20 12:25 Active 10 ml FLUSH ASDIRECTED PRN Peripheral IV Insertion Adult [OM.PC] Urgent Oth 03/01/20 12:25 Ordered EKG 12 Lead [EK] Stat Ther 03/01/20 12:25 Ordered Medication Orders Sodium Chloride (Normal Saline) 80 mls @ 3 mls/sec IV ASDIRECTED LO Last Admin: 03/01/20 13:33 Dose: 3 mls/sec Documented by: THELASH Iopamidol (Isovue-300 (61%)) 100 ml IV . DIRECTED [facility] Last Admin: 03/01/20 13:33 Dose: 100 ml Documented by: THELASH Sodium Chloride (Saline Flush) 10 ml FLUSH ASDIRECTED PRN PRN Reason: Keep Vein Open Assessment/Plan Comment:: Assessment/Plan: #1. alcohol intoxication. He is unsafe to go home as his gate is very unsteady mentally challenged at the present time. He is unrealistic admitting to the quantity of alcohol consumption. #2. History of gout. Willk continue with Allopurinol #3. Atrial fib: Will continue with Eloquist. #4. HTN: Continue with Lisinopril. #5. Obesity Chronic #6. Hyperlipidemia: Choses not to take meds #&. ASHD: Condition stable.
--- NOTE | 2020-03-01 15:32 | PCM.PN ---
- General Info Date of Service: 03/01/20 Functional Status: Reports: Pain Controlled - Review of Systems General: Reports: Weakness - Patient Data Vitals - Most Recent: Last Vital Signs Temp 97.4 F 03/01/20 12:33 Pulse 77 03/01/20 15:05 Resp 20 03/01/20 15:05 BP 129/60 03/01/20 15:05 Pulse Ox 97 03/01/20 15:05 Orthostatic Blood Pressure [ 160/85 Standing] Orthostatic Blood Pressure [ 150/79 Sitting] Orthostatic Blood Pressure [ 149/69 Supine] I&O - Last 24 Hours: Intake & Output 03/01/20 03/01/20 03/01/20 06:59 14:59 22:59 Output Total 440 Balance -440 Lab Results Last 24 Hours: Laboratory Results - last 24 hr 03/01/20 03/01/20 03/01/20 Range/Units 12:25 12:25 12:25 WBC 7.9 (4.5-11.0) K/uL RBC 5.91 H (4.30-5.90) M/uL Hgb 18.4 H* D (12.0-15.0) g/dL Hct 54.9 H (40.0-54.0) % MCV 93 (80-98) fL MCH 31 (27-31) pg MCHC 34 (32-36) % Plt Count 206 (150-400) K/uL Neut % (Auto) 45 (36-66) % Lymph % (Auto) 45 H (24-44) % [place] % (Auto) 8 H (2-6) % Eos % (Auto) 1 L (2-4) % Baso % (Auto) 1 (0-1) % PT 12.0 (9.5-12.0) sec INR 1.10 (0.80-1.20) Sodium 132 L (140-148) mmol/L Potassium 4.4 (3.6-5.2) mmol/L Chloride 95 L (100-108) mmol/L Carbon Dioxide 21 (21-32) mmol/L Anion Gap 20.4 H (5.0-14.0) mmol/L BUN 18 (7-18) mg/dL Creatinine 1.4 H (0.8-1.3) mg/dL Est Cr Clr Drug Dosing TNP Estimated GFR (MDRD) 50 L (>60) Glucose 78 (74-106) mg/dL POC Glucose (74-106) mg/dL Calcium 8.9 (8.5-10.1) mg/dL Ethyl Alcohol mg/dL Blood Type Gel Antibody Screen 03/01/20 03/01/20 03/01/20 Range/Units 12:25 12:25 12:38 WBC (4.5-11.0) K/uL RBC (4.30-5.90) M/uL Hgb (12.0-15.0) g/dL Hct (40.0-54.0) % MCV (80-98) fL MCH (27-31) pg MCHC (32-36) % Plt Count (150-400) K/uL Neut % (Auto) (36-66) % Lymph % (Auto) (24-44) % [place] % (Auto) (2-6) % Eos % (Auto) (2-4) % Baso % (Auto) (0-1) % PT (9.5-12.0) sec INR (0.80-1.20) Sodium (140-148) mmol/L Potassium (3.6-5.2) mmol/L Chloride (100-108) mmol/L Carbon Dioxide (21-32) mmol/L Anion Gap (5.0-14.0) mmol/L BUN (7-18) mg/dL Creatinine (0.8-1.3) mg/dL Est Cr Clr Drug Dosing Estimated GFR (MDRD) (>60) Glucose (74-106) mg/dL POC Glucose 77 (74-106) mg/dL Calcium (8.5-10.1) mg/dL Ethyl Alcohol 209 mg/dL Blood Type O NEGATIVE Gel Antibody Screen Negative Med Orders - Current: Current Medications Allopurinol (Zyloprim) 300 mg PO DAILY LO Apixaban (Eliquis) 5 mg PO BID LO Furosemide (Lasix) 20 mg PO BID LO Sodium Chloride (Normal Saline) 80 mls @ 3 mls/sec IV ASDIRECTED LO Last Admin: 03/01/20 13:33 Dose: 3 mls/sec Documented by: Iopamidol (Isovue-300 (61%)) 100 ml IV . DIRECTED LO Last Admin: 03/01/20 13:33 Dose: 100 ml Documented by: Lisinopril (Prinivil) 10 mg PO DAILY [facility] Metoprolol Tartrate (Lopressor) 25 mg PO BID [facility] Montelukast Sodium (Singulair) 10 mg PO DAILY [facility] Non-Formulary Medication (Aspirin [Aspirin]) 325 mg PO DAILY LO Non-Formulary Medication (Calcium Carb/Vit D3/Minerals [Calcium 600+D Plus Minerals]) 1 tab PO DAILY LO Non-Formulary Medication (Magnesium Oxide/Mag Aa Chelate [Magnesium]) 1 tab PO BID LO Non-Formulary Medication (Mecobalamin [B12 Active]) 2,500 mg PO DAILY LO Non-Formulary Medication (Pantoprazole Sodium [Protonix]) 1 tab PO BID LO Potassium Chloride (Potassium Chloride) 10 meq PO TID LO Sodium Chloride (Saline Flush) 10 ml FLUSH ASDIRECTED PRN PRN Reason: Keep Vein Open Discontinued Medications Sodium Chloride (Saline Flush) 10 ml FLUSH ONETIME ONE Stop: 03/01/20 13:09 Last Admin: 03/01/20 13:33 Dose: 10 ml Documented by: Sodium Chloride (Normal Saline) 1,000 ml IV NOW STA Stop: 03/01/20 14:42 - Exam General: Oriented, Cooperative, Mild Distress Sepsis Event Note - Evaluation Sepsis Screening Result: No Definite Risk - Focused Exam Vital Signs: Vital Signs Temp Pulse Resp BP Pulse Ox 03/01/20 15:05 77 20 129/60 97 03/01/20 14:33 74 22 H 144/67 H 96 03/01/20 12:33 97.4 F 67 17 143/81 H 96 - Problem List Review Problem List Initiated/Reviewed/Updated: Yes - My Orders Last 24 Hours: My Active Orders 03/01/20 15:18 Height and Weight [RC] UPON May Shower [RC] ASDIRECTED Up With Assistance [RC] ASDIRECTED Up to Chair [RC] QID Resuscitation Status Routine 03/01/20 15:19 Patient Status [ADT] Routine Oxygen Therapy [RC] PRN VTE/DVT Education [RC] Per Unit Routine Vital Signs [RC] Q4H 03/01/20 15:25 Intake and Output [RC] QSHIFT 03/01/20 21:00 Apixaban [Eliquis] 5 mg PO BID Furosemide [Lasix] 20 mg PO BID Magnesium Oxide/Mag AA Chelate [Magnesium] 1 tab PO BID Metoprolol Tartrate [Lopressor] 25 mg PO BID Pantoprazole Sodium [Protonix] 1 tab PO BID Potassium Chloride 10 meq PO TID 03/02/20 05:11 BASIC METABOLIC PANEL,BMP [CHEM] AM CBC W/O DIFF,HEMOGRAM [HEME] AM 03/02/20 09:00 Aspirin [Aspirin] 325 mg PO DAILY Calcium Carb/Vit D3/Minerals [Calcium 600+D Plus Minerals] 1 tab PO DAILY Mecobalamin [B12 Active] 2,500 mg PO DAILY Montelukast [Singulair] 10 mg PO DAILY allopurinoL [Zyloprim] 300 mg PO DAILY lisinopriL [Prinivil] 10 mg PO DAILY - Assessment Assessment:: CDT of the head and abdomin upon admission to the ER was negative. - Plan Plan:: Assessment/Plan: #1. alcohol intoxication. He is unsafe to go home as his gate is very unsteady mentally challenged at the present time. He is unrealistic admitting to the quantity of alcohol consumption. #2. History of gout. Willk continue with Allopurinol #3. Atrial fib: Will continue with Eloquist. #4. HTN: Continue with Lisinopril. #5. Obesity Chronic #6. Hyperlipidemia: Choses not to take meds #&. ASHD: Condition stable.
[2020-03-01] MEDS ORDERED: Sodium Chloride 0.9% 10 ML SDV IV SCH (16:00)
[2020-03-01] MEDS: Furosemide 20 MG Tab PO SCH (18:27)
[2020-03-01] MEDS: Sodium Chloride 0.9% 1,000 ML IV SCH (18:28)
[2020-03-01] MEDS: Potassium Chloride 10 MEQ Cap.ER PO SCH (20:07)
[2020-03-01] MEDS: Metoprolol Tartrate 25 MG Tab PO SCH (20:08)
[2020-03-01] MEDS: Apixaban 5 MG Tab PO SCH (20:08)
[2020-03-01] MEDS: Magnesium Oxide 400 MG Tab PO SCH (21:18)
[2020-03-02] MEDS: Sodium Chloride 0.9% 1,000 ML IV SCH (05:46)
--- NOTE | 2020-03-02 08:50 | PCM.DCSUM1 ---
Discharge Summary - Hospital Course Brief History: 74-year-old male brought by private vehicle to emergency department due to unresponsiveness. According to friends last seen well around 5 AM. Friends returned later to go fishing and found patient unresponsive sitting in a chair in the garage. They promptly put him in their vehicle and brought him to the emergency department. They indicate there was a empty 1.75 L bottle of [place] next to him. They note they found him sitting in the chair with abrasions on his arm and nose. Unable to report any known medical history or other events surrounding incident. He admits now he macie about 1/2 inch of whisky in a 8 oz glass and had 2 beers yesterday afternoon. Diagnosis: Stroke: No - Discharge Data Discharge Date: 03/02/20 Discharge Disposition: Home, Self-Care 01 Condition: Good - Referral to Home Health Primary Care Physician: PCP None - Patient Summary/Data Hospital Course: He was admitted with intoxication due to alcohol. Unable to walk without assistance and was unsafe to go home as he lives alone. He had a uneventful stay in the hospital and was medically stable the morning after admission. - Patient Instructions Diet: Heart Healthy Diet, Usual Diet as Tolerated Activity: As Tolerated - Discharge Plan Home Medications: Home Meds Allopurinol [Zyloprim] 300 mg PO DAILY 01/11/16 [History] Apixaban [Eliquis] 5 mg PO BID 11/11/18 [History] Aspirin 325 mg PO DAILY 11/11/18 [History] Furosemide [Lasix] 20 mg PO BID 11/11/18 [History] Calcium Carb/Vit D3/Minerals [Calcium 600+D Plus Minerals] 1 tab PO DAILY 03/01/20 [History] Magnesium Oxide/Mag AA Chelate [Magnesium] 1 tab PO BID 03/01/20 [History] Mecobalamin [B12 Active] 2,500 mg PO DAILY 03/01/20 [History] Metoprolol Tartrate [Lopressor] 25 mg PO BID 03/01/20 [History] Montelukast [Singulair] 1 tab PO DAILY 03/01/20 [History] Pantoprazole Sodium [Protonix] 1 tab PO BID 03/01/20 [History] Potassium Chloride 1 tab PO TID 03/01/20 [History] lisinopriL [Lisinopril] 1 tab PO DAILY 03/01/20 [History] Forms: ED Department Discharge Referrals: PCP,None [Primary Care Provider] - - Discharge Summary/Plan Comment DC Time >30 min.: Yes Discharge Summary/Plan Comment: Assessment/Plan: #1. Alcohol intoxication. Doing well this morning having no complaints. He is eating well and walking without problems. #2. History of gout. Will continue with Allopurinol #3. Atrial fib: Will continue with Eliquis. #4. HTN: Continue with Lisinopril. #5. Obesity Chronic #6. Hyperlipidemia: Choses not to take meds. #&. ASHD: Condition stable. Krishna discharge home today and will see in the office in one week. I have encouraged him to stop alcohol but he is not interested in stopping alc. - General Info Date of Service: 03/02/20 Functional Status: Reports: Pain Controlled - Review of Systems General: Reports: No Symptoms HEENT: Reports: No Symptoms Pulmonary: Reports: No Symptoms Cardiovascular: Reports: No Symptoms Gastrointestinal: Reports: No Symptoms Genitourinary: Reports: No Symptoms Musculoskeletal: Reports: No Symptoms Skin: Reports: No Symptoms Neurological: Reports: No Symptoms Psychiatric: Reports: No Symptoms - Patient Data Vitals - Most Recent: Last Vital Signs Temp 98.3 F 03/02/20 06:51 Pulse 58 L 03/02/20 06:51 Resp 18 03/02/20 06:51 BP 127/49 L 03/02/20 06:51 Pulse Ox 97 03/02/20 06:51 Orthostatic Blood Pressure [ 160/85 Standing] Orthostatic Blood Pressure [ 150/79 Sitting] Orthostatic Blood Pressure [ 149/69 Supine] Weight - Most Recent: 205 lb 14.588 oz I&O - Last 24 hours: Intake & Output 03/01/20 03/02/20 03/02/20 22:59 06:59 14:59 Intake Total 480 435 Output Total 600 700 Balance -120 -700 435 Lab Results - Last 24 hrs: Laboratory Results - last 24 hr 03/01/20 03/01/20 03/01/20 Range/Units 12:25 12:25 12:25 WBC 7.9 (4.5-11.0) K/uL RBC 5.91 H (4.30-5.90) M/uL Hgb 18.4 H* D (12.0-15.0) g/dL Hct 54.9 H (40.0-54.0) % MCV 93 (80-98) fL MCH 31 (27-31) pg MCHC 34 (32-36) % Plt Count 206 (150-400) K/uL Neut % (Auto) 45 (36-66) % Lymph % (Auto) 45 H (24-44) % [place] % (Auto) 8 H (2-6) % Eos % (Auto) 1 L (2-4) % Baso % (Auto) 1 (0-1) % PT 12.0 (9.5-12.0) sec INR 1.10 (0.80-1.20) Sodium 132 L (140-148) mmol/L Potassium 4.4 (3.6-5.2) mmol/L Chloride 95 L (100-108) mmol/L Carbon Dioxide 21 (21-32) mmol/L Anion Gap 20.4 H (5.0-14.0) mmol/L BUN 18 (7-18) mg/dL Creatinine 1.4 H (0.8-1.3) mg/dL Est Cr Clr Drug Dosing TNP Estimated GFR (MDRD) 50 L (>60) Glucose 78 (74-106) mg/dL POC Glucose Calcium 8.9 (8.5-10.1) mg/dL Ethyl Alcohol mg/dL Blood Type Gel Antibody Screen 03/01/20 03/01/20 03/01/20 Range/Units 12:25 12:25 12:38 WBC (4.5-11.0) K/uL RBC (4.30-5.90) M/uL Hgb (12.0-15.0) g/dL Hct (40.0-54.0) % MCV (80-98) fL MCH (27-31) pg MCHC (32-36) % Plt Count (150-400) K/uL Neut % (Auto) (36-66) % Lymph % (Auto) (24-44) % [place] % (Auto) (2-6) % Eos % (Auto) (2-4) % Baso % (Auto) (0-1) % PT (9.5-12.0) sec INR (0.80-1.20) Sodium (140-148) mmol/L Potassium (3.6-5.2) mmol/L Chloride (100-108) mmol/L Carbon Dioxide (21-32) mmol/L Anion Gap (5.0-14.0) mmol/L BUN (7-18) mg/dL Creatinine (0.8-1.3) mg/dL Est Cr Clr Drug Dosing Estimated GFR (MDRD) (>60) Glucose (74-106) mg/dL POC Glucose Cancelled Calcium (8.5-10.1) mg/dL Ethyl Alcohol 209 mg/dL Blood Type O NEGATIVE Gel Antibody Screen Negative 03/01/20 03/02/20 03/02/20 Range/Units 12:38 04:05 04:05 WBC 6.1 (4.5-11.0) K/uL RBC 4.74 (4.30-5.90) M/uL Hgb 15.1 H D (12.0-15.0) g/dL Hct 44.8 (40.0-54.0) % MCV 95 (80-98) fL MCH 32 H (27-31) pg MCHC 34 (32-36) % Plt Count 166 (150-400) K/uL Neut % (Auto) (36-66) % Lymph % (Auto) (24-44) % [place] % (Auto) (2-6) % Eos % (Auto) (2-4) % Baso % (Auto) (0-1) % PT (9.5-12.0) sec INR (0.80-1.20) Sodium 138 L (140-148) mmol/L Potassium 4.6 (3.6-5.2) mmol/L Chloride 106 (100-108) mmol/L Carbon Dioxide 23 (21-32) mmol/L Anion Gap 13.6 (5.0-14.0) mmol/L BUN 22 H (7-18) mg/dL Creatinine 1.5 H (0.8-1.3) mg/dL Est Cr Clr Drug Dosing 41.01 Estimated GFR (MDRD) 46 L (>60) Glucose 155 H (74-106) mg/dL POC Glucose 77 Calcium 7.7 L (8.5-10.1) mg/dL Ethyl Alcohol mg/dL Blood Type Gel Antibody Screen Med Orders - Current: Current Medications Allopurinol (Zyloprim) 300 mg PO DAILY LO Apixaban (Eliquis) 5 mg PO BID [facility] Last Admin: 03/01/20 20:08 Dose: 5 mg Documented by: Aspirin (Ecotrin) 325 mg PO DAILY [facility] Calcium Carbonate (Caltrate 600+D 1500 Mg-400 Units) 1 tab PO DAILY [facility] Furosemide (Lasix) 20 mg PO BIDDIURETIC [facility] Last Admin: 03/01/20 18:27 Dose: 20 mg Documented by: Sodium Chloride (Normal Saline) 80 mls @ 3 mls/sec IV ASDIRECTED [facility] Last Admin: 03/01/20 13:33 Dose: 3 mls/sec Documented by: Sodium Chloride (Normal Saline) 1,000 mls @ 75 mls/hr IV ASDIRECTED [facility] Last Admin: 03/02/20 05:46 Dose: 75 mls/hr Documented by: Iopamidol (Isovue-300 (61%)) 100 ml IV . DIRECTED [facility] Last Admin: 03/01/20 13:33 Dose: 100 ml Documented by: Lisinopril (Prinivil) 10 mg PO DAILY [facility] Magnesium Oxide (Magnesium Oxide) 400 mg PO DAILY [facility] Last Admin: 03/01/20 21:18 Dose: 400 mg Documented by: Metoprolol Tartrate (Lopressor) 25 mg PO BID [facility] Last Admin: 03/01/20 20:08 Dose: 25 mg Documented by: Montelukast Sodium (Singulair) 10 mg PO DAILY [facility] Pantoprazole Sodium (Protonix) 40 mg PO DAILY [facility] Potassium Chloride (Potassium Chloride) 10 meq PO TID [facility] Last Admin: 03/01/20 20:07 Dose: 10 meq Documented by: Sodium Chloride (Saline Flush) 10 ml FLUSH ASDIRECTED PRN PRN Reason: Keep Vein Open Discontinued Medications Magnesium Oxide (Magnesium Oxide) 250 mg PO BID [facility] Non-Formulary Medication (Mecobalamin [B12 Active]) 2,500 mg PO DAILY [facility] Sodium Chloride (Saline Flush) 10 ml FLUSH ONETIME ONE Stop: 03/01/20 13:09 Last Admin: 03/01/20 13:33 Dose: 10 ml Documented by: Sodium Chloride (Normal Saline) 1,000 ml IV NOW STA Stop: 03/01/20 14:42 Last Admin: 03/01/20 15:51 Dose: 1,000 ml Documented by: Sodium Chloride (Normal Saline) 75 ml IV BID [facility] Last Admin: 03/01/20 18:36 Dose: Not Given Documented by: - Exam General: Reports: Alert, Oriented HEENT: Reports: Pupils Equal, Pupils Reactive, EOMI, Mucous Membr. Moist/[place] Neck: Reports: Supple Lungs: Reports: Clear to Auscultation, Normal Respiratory Effort Cardiovascular: Reports: Regular Rate, Regular Rhythm GI/Abdominal Exam: Normal Bowel Sounds, Soft, Non-Tender, No Organomegaly, No Distention, No Abnormal Bruit, No Mass, Pelvis Stable Back Exam: Reports: Normal Inspection, Full Range of Motion Skin: Reports: Warm, Dry, Intact Wound/Incisions: Reports: Healing Well Neurological: Reports: No New Focal Deficit Psy/Mental Status: Reports: Alert, Normal Affect, Normal Mood
--- NOTE | 2020-03-02 08:50 | PCM.PN ---
- General Info Date of Service: 03/02/20 Functional Status: Reports: Pain Controlled - Review of Systems General: Reports: No Symptoms HEENT: Reports: No Symptoms Pulmonary: Reports: No Symptoms Cardiovascular: Reports: No Symptoms Gastrointestinal: Reports: No Symptoms Genitourinary: Reports: No Symptoms Musculoskeletal: Reports: No Symptoms Skin: Reports: No Symptoms Neurological: Reports: No Symptoms Psychiatric: Reports: No Symptoms - Patient Data Vitals - Most Recent: Last Vital Signs Temp 98.3 F 03/02/20 06:51 Pulse 58 L 03/02/20 06:51 Resp 18 03/02/20 06:51 BP 127/49 L 03/02/20 06:51 Pulse Ox 97 03/02/20 06:51 Orthostatic Blood Pressure [ 160/85 Standing] Orthostatic Blood Pressure [ 150/79 Sitting] Orthostatic Blood Pressure [ 149/69 Supine] Weight - Most Recent: 205 lb 14.588 oz I&O - Last 24 Hours: Intake & Output 03/01/20 03/02/20 03/02/20 22:59 06:59 14:59 Intake Total 480 435 Output Total 600 700 Balance -120 -700 435 Lab Results Last 24 Hours: Laboratory Results - last 24 hr 03/01/20 03/01/20 03/01/20 Range/Units 12:25 12:25 12:25 WBC 7.9 (4.5-11.0) K/uL RBC 5.91 H (4.30-5.90) M/uL Hgb 18.4 H* D (12.0-15.0) g/dL Hct 54.9 H (40.0-54.0) % MCV 93 (80-98) fL MCH 31 (27-31) pg MCHC 34 (32-36) % Plt Count 206 (150-400) K/uL Neut % (Auto) 45 (36-66) % Lymph % (Auto) 45 H (24-44) % [place] % (Auto) 8 H (2-6) % Eos % (Auto) 1 L (2-4) % Baso % (Auto) 1 (0-1) % PT 12.0 (9.5-12.0) sec INR 1.10 (0.80-1.20) Sodium 132 L (140-148) mmol/L Potassium 4.4 (3.6-5.2) mmol/L Chloride 95 L (100-108) mmol/L Carbon Dioxide 21 (21-32) mmol/L Anion Gap 20.4 H (5.0-14.0) mmol/L BUN 18 (7-18) mg/dL Creatinine 1.4 H (0.8-1.3) mg/dL Est Cr Clr Drug Dosing TNP Estimated GFR (MDRD) 50 L (>60) Glucose 78 (74-106) mg/dL POC Glucose Calcium 8.9 (8.5-10.1) mg/dL Ethyl Alcohol mg/dL Blood Type Gel Antibody Screen 03/01/20 03/01/20 03/01/20 Range/Units 12:25 12:25 12:38 WBC (4.5-11.0) K/uL RBC (4.30-5.90) M/uL Hgb (12.0-15.0) g/dL Hct (40.0-54.0) % MCV (80-98) fL MCH (27-31) pg MCHC (32-36) % Plt Count (150-400) K/uL Neut % (Auto) (36-66) % Lymph % (Auto) (24-44) % [place] % (Auto) (2-6) % Eos % (Auto) (2-4) % Baso % (Auto) (0-1) % PT (9.5-12.0) sec INR (0.80-1.20) Sodium (140-148) mmol/L Potassium (3.6-5.2) mmol/L Chloride (100-108) mmol/L Carbon Dioxide (21-32) mmol/L Anion Gap (5.0-14.0) mmol/L BUN (7-18) mg/dL Creatinine (0.8-1.3) mg/dL Est Cr Clr Drug Dosing Estimated GFR (MDRD) (>60) Glucose (74-106) mg/dL POC Glucose Cancelled Calcium (8.5-10.1) mg/dL Ethyl Alcohol 209 mg/dL Blood Type O NEGATIVE Gel Antibody Screen Negative 03/01/20 03/02/20 03/02/20 Range/Units 12:38 04:05 04:05 WBC 6.1 (4.5-11.0) K/uL RBC 4.74 (4.30-5.90) M/uL Hgb 15.1 H D (12.0-15.0) g/dL Hct 44.8 (40.0-54.0) % MCV 95 (80-98) fL MCH 32 H (27-31) pg MCHC 34 (32-36) % Plt Count 166 (150-400) K/uL Neut % (Auto) (36-66) % Lymph % (Auto) (24-44) % [place] % (Auto) (2-6) % Eos % (Auto) (2-4) % Baso % (Auto) (0-1) % PT (9.5-12.0) sec INR (0.80-1.20) Sodium 138 L (140-148) mmol/L Potassium 4.6 (3.6-5.2) mmol/L Chloride 106 (100-108) mmol/L Carbon Dioxide 23 (21-32) mmol/L Anion Gap 13.6 (5.0-14.0) mmol/L BUN 22 H (7-18) mg/dL Creatinine 1.5 H (0.8-1.3) mg/dL Est Cr Clr Drug Dosing 41.01 Estimated GFR (MDRD) 46 L (>60) Glucose 155 H (74-106) mg/dL POC Glucose 77 Calcium 7.7 L (8.5-10.1) mg/dL Ethyl Alcohol mg/dL Blood Type Gel Antibody Screen Med Orders - Current: Current Medications Allopurinol (Zyloprim) 300 mg PO DAILY [facility] Apixaban (Eliquis) 5 mg PO BID [facility] Last Admin: 03/01/20 20:08 Dose: 5 mg Documented by: Aspirin (Ecotrin) 325 mg PO DAILY [facility] Calcium Carbonate (Caltrate 600+D 1500 Mg-400 Units) 1 tab PO DAILY [facility] Furosemide (Lasix) 20 mg PO BIDDIURETIC [facility] Last Admin: 03/01/20 18:27 Dose: 20 mg Documented by: Sodium Chloride (Normal Saline) 80 mls @ 3 mls/sec IV ASDIRECTED [facility] Last Admin: 03/01/20 13:33 Dose: 3 mls/sec Documented by: Sodium Chloride (Normal Saline) 1,000 mls @ 75 mls/hr IV ASDIRECTED [facility] Last Admin: 03/02/20 05:46 Dose: 75 mls/hr Documented by: Iopamidol (Isovue-300 (61%)) 100 ml IV . DIRECTED [facility] Last Admin: 03/01/20 13:33 Dose: 100 ml Documented by: Lisinopril (Prinivil) 10 mg PO DAILY [facility] Magnesium Oxide (Magnesium Oxide) 400 mg PO DAILY [facility] Last Admin: 03/01/20 21:18 Dose: 400 mg Documented by: Metoprolol Tartrate (Lopressor) 25 mg PO BID [facility] Last Admin: 03/01/20 20:08 Dose: 25 mg Documented by: Montelukast Sodium (Singulair) 10 mg PO DAILY [facility] Pantoprazole Sodium (Protonix) 40 mg PO DAILY [facility] Potassium Chloride (Potassium Chloride) 10 meq PO TID [facility] Last Admin: 03/01/20 20:07 Dose: 10 meq Documented by: Sodium Chloride (Saline Flush) 10 ml FLUSH ASDIRECTED PRN PRN Reason: Keep Vein Open Discontinued Medications Magnesium Oxide (Magnesium Oxide) 250 mg PO BID [facility] Non-Formulary Medication (Mecobalamin [B12 Active]) 2,500 mg PO DAILY [facility] Sodium Chloride (Saline Flush) 10 ml FLUSH ONETIME ONE Stop: 03/01/20 13:09 Last Admin: 03/01/20 13:33 Dose: 10 ml Documented by: Sodium Chloride (Normal Saline) 1,000 ml IV NOW STA Stop: 03/01/20 14:42 Last Admin: 03/01/20 15:51 Dose: 1,000 ml Documented by: Sodium Chloride (Normal Saline) 75 ml IV BID [facility] Last Admin: 03/01/20 18:36 Dose: Not Given Documented by: - Exam General: Alert, Oriented HEENT: Pupils Equal, Pupils Reactive, EOMI, Mucous Membr. Moist/[place] Neck: Supple Lungs: Clear to Auscultation, Normal Respiratory Effort Cardiovascular: Regular Rate, Regular Rhythm GI/Abdominal Exam: Normal Bowel Sounds, Soft, Non-Tender, No Organomegaly, No Distention, No Abnormal Bruit, No Mass, Pelvis Stable Extremities: Normal Inspection, Normal Range of Motion, Non-Tender, No Pedal Edema, Normal Capillary Refill Peripheral Pulses: 1+: Radial (L), Radial (R) Skin: Warm, Dry, Intact Wound/Incisions: Healing Well Neurological: No New Focal Deficit Psy/Mental Status: Alert, Normal Affect, Normal Mood Sepsis Event Note - Evaluation Sepsis Screening Result: No Definite Risk - Focused Exam Vital Signs: Vital Signs Temp Pulse Resp BP Pulse Ox 03/02/20 06:51 98.3 F 58 L 18 127/49 L 97 03/02/20 04:00 98.0 F 59 L 18 117/46 L 100 03/01/20 22:34 99.1 F 84 16 121/41 L 95 - Problem List Review Problem List Initiated/Reviewed/Updated: Yes - My Orders Last 24 Hours: My Active Orders 03/01/20 15:18 May Shower [RC] ASDIRECTED Up With Assistance [RC] ASDIRECTED Up to Chair [RC] QID Resuscitation Status Routine 03/01/20 15:19 Patient Status [ADT] Routine Oxygen Therapy [RC] PRN VTE/DVT Education [RC] Per Unit Routine Vital Signs [RC] Q4H 03/01/20 15:25 Intake and Output [RC] QSHIFT 03/01/20 16:00 Furosemide [Lasix] 20 mg PO BIDDIURETIC 03/01/20 18:00 Sodium Chloride 0.9% [Normal Saline] 1,000 ml IV ASDIRECTED 03/01/20 20:15 Magnesium Oxide 400 mg PO DAILY 03/01/20 21:00 Apixaban [Eliquis] 5 mg PO BID Metoprolol Tartrate [Lopressor] 25 mg PO BID Potassium Chloride 10 meq PO TID 03/02/20 Breakfast Regular Diet [DIET] 03/02/20 09:00 Aspirin [Ecotrin] 325 mg PO DAILY Calcium Carbonate/Vitamin D3 [Caltrate 600+D 1500 MG-400 Units] 1 tab PO DAILY Montelukast [Singulair] 10 mg PO DAILY Pantoprazole [ProTONIX] 40 mg PO DAILY allopurinoL [Zyloprim] 300 mg PO DAILY lisinopriL [Prinivil] 10 mg PO DAILY - Assessment Assessment:: CDT of the head and abdomin upon admission to the ER was negative. - Plan Plan:: Assessment/Plan: #1. Alcohol intoxication. Doing well this morning having no complaints. He is eating well and walking without problems. #2. History of gout. Will continue with Allopurinol #3. Atrial fib: Will continue with Eliquis. #4. HTN: Continue with Lisinopril. #5. Obesity Chronic #6. Hyperlipidemia: Choses not to take meds. #&. ASHD: Condition stable. Krishna discharge home today and will see in the office in one week. I have encouraged him to stop alcohol but he is not interested in stopping alc.
[2020-03-02] MEDS: Magnesium Oxide 400 MG Tab PO SCH (08:54)
[2020-03-02] MEDS: Furosemide 20 MG Tab PO SCH (08:54)
[2020-03-02] MEDS: Apixaban 5 MG Tab PO SCH (08:54)
[2020-03-02] MEDS: Metoprolol Tartrate 25 MG Tab PO SCH (08:54)
[2020-03-02] MEDS: Potassium Chloride 10 MEQ Cap.ER PO SCH (08:55)
[2020-03-02] MEDS ORDERED: Calcium Carbonate/Vitamin D3 1500 MG-400 Units Tab PO SCH (09:00)
[2020-03-02] MEDS ORDERED: Lisinopril 10 MG Tab PO SCH (09:00)
[2020-03-02] MEDS ORDERED: Pantoprazole 40 MG Tab.CR PO SCH (09:00)
[2020-03-02] MEDS ORDERED: Montelukast 10 MG Tab PO SCH (09:00)
[2020-03-02] MEDS ORDERED: MECOBALAMIN PO SCH (09:00)
[2020-03-02] MEDS ORDERED: Aspirin 325 MG Tab.EC PO SCH (09:00)
[2020-03-02] MEDS ORDERED: Allopurinol 300 MG Tab PO SCH (09:00)
[2020-03-02 10:08] VITALS: BP 128/41; PULSE 71
== END 2020-03-02 12:15 | disposition home or self-care (01) ==
LOC: JP.ED 12:23 → JP.MS 15:18
PROVIDERS: ADMIT Internal Medicine; ATTEND Internal Medicine
DX: S09.90XA Unspecified injury of head, initial encounter (principal); S51.012A Laceration without foreign body of left elbow, initial encounter; S00.31XA Abrasion of nose, initial encounter; F10.129 Alcohol abuse with intoxication, unspecified; I48.91 Unspecified atrial fibrillation; J44.9 Chronic obstructive pulmonary disease, unspecified; Y90.7 Blood alcohol level of 200-239 mg/100 ml; Z79.82 Long term (current) use of aspirin; Z79.899 Other long term (current) drug therapy; Z90.49 Acquired absence of other specified parts of digestive tract; X58.XXXA Exposure to other specified factors, initial encounter; Y92.59 Other trade areas as the place of occurrence of the external cause
CPT/HCPCS: 36415; 70450; 71260; 72125; 74177; 80048; 80307; 82962; 85025; 85027; 85610; 86850; 86900; 86901; 93005; 93010; 96360; 96361; 99284; 99285; A9270; G0378; J7030; J7050; Q9967

== ENCOUNTER 2020-04-09 07:13 | Day surgery (SDC) | payer MEDICARE, OTHER ==
[2020-04-09] MEDS ORDERED: Midazolam 1 MG/ML 2 ML SDV ONE (07:25)
[2020-04-09] MEDS ORDERED: Propofol 200 MG/20 ML SDV ONE (07:25)
[2020-04-09] MEDS ORDERED: fentaNYL 100 MCG/2 ML SDV ONE (07:25)
[2020-04-09] MEDS ORDERED: Sodium Chloride 0.9% 1,000 ML IV SCH (08:00)
[2020-04-09 09:47] VITALS: BP 124/72; PULSE 57
--- NOTE | 2020-04-09 15:44 | PROC ---
DATE OF PROCEDURE: 04/09/2020 SURGEON: Steve Carlisle MD INDICATIONS: Stef is a 74-year-old male, who comes in because of having diarrhea. He has a mild abdominal pain with very minimal, mostly diarrhea, which he has had for several months. PROCEDURE IN DETAIL: The risks and benefits were explained to the patient, and he was taken to the OR, and anesthesia was given by nurse theatrical dresser. During the procedure, we used 2 mg of Versed, 2 mcg of fentanyl and 200 mg of propofol. The Olympus 180L scope was used, was placed into the rectum. Examination of the rectum revealed no significant prostate material. The tube was advanced and did get to the cecum with external pressure. Upon slow retraction of the tube, got good observation of the entire mucosa. There were no lesions or ulceration. No abnormality throughout the entire colon. The tube was removed. The patient tolerated the procedure well. PREOPERATIVE DIAGNOSIS: Diarrhea. POSTOPERATIVE DIAGNOSIS: Normal colon from cecum to rectum. This exam does not explain the diarrhea which he is suffering from. Other modalities need to be done to determine the cause of the diarrhea.. Steve Carlisle MD /[id number] MTDD
== END 2020-04-09 09:47 | disposition home or self-care (01) ==
LOC: JP.SDS 07:13
PROVIDERS: ATTEND Internal Medicine
DX: R19.7 Diarrhea, unspecified (principal); I10 Essential (primary) hypertension
CPT/HCPCS: 45378; J2250; J2704; J3010; J7030

== ENCOUNTER 2023-03-17 14:42 | Emergency (ER) | payer MEDICARE, OTHER ==
[2023-03-17 14:55] VITALS: BP 141/70; PULSE 88
== END 2023-03-17 16:23 | disposition home or self-care (01) ==
LOC: JP.ED 14:42 → EEVIPCON 14:42 → JP.ED 16:23
DX: R09.81 Nasal congestion (principal); J44.9 Chronic obstructive pulmonary disease, unspecified; N18.30 Chronic kidney disease, stage 3 unspecified; M19.90 Unspecified osteoarthritis, unspecified site; I48.91 Unspecified atrial fibrillation; Z79.899 Other long term (current) drug therapy; Z79.82 Long term (current) use of aspirin; Z79.01 Long term (current) use of anticoagulants
CPT/HCPCS: 71046; 71046-26; 99282; 99283

== ENCOUNTER 2024-01-06 16:59 | Emergency (ER) | payer MEDICARE, OTHER ==
[2024-01-06 18:50] VITALS: BP 155/83; PULSE 89
== END 2024-01-06 21:18 | disposition home or self-care (01) ==
LOC: JP.ED 16:59
DX: M48.061 Spinal stenosis, lumbar region without neurogenic claudication (principal); I48.91 Unspecified atrial fibrillation; J44.9 Chronic obstructive pulmonary disease, unspecified; Z79.01 Long term (current) use of anticoagulants; Z79.84 Long term (current) use of oral hypoglycemic drugs; Z79.899 Other long term (current) drug therapy; Z90.49 Acquired absence of other specified parts of digestive tract
CPT/HCPCS: 72192; 76377; 99283